=== PATIENT | female | born 1945 | race Caucasian/White ===

== ENCOUNTER 2017-12-25 18:30 | Emergency (ER) | payer MEDICARE, BC ==
--- NOTE | 2017-12-25 19:34 | EDM.PDOC ---
ED HPI GENERAL MEDICAL PROBLEM - General Chief Complaint: Neuro Symptoms/Deficits Stated Complaint: MEMORY DIFFUCLTY, NUMBNESS IN HAND Time Seen by Provider: 12/25/17 19:15 Source of Information: Reports: Patient, Family History Limitations: Reports: No Limitations - History of Present Illness INITIAL COMMENTS - FREE TEXT/NARRATIVE: 72-year-old female was at home to a half hours ago when she developed expressive aphasia and right hand numbness for around 40-45 minutes. This followed some visual changes, photophobia and scotoma like vision while she was on her way home from work. The symptoms resolved prior to getting to the hospital and that she now feels back to baseline. There is a family history of migraine but no personal history, she did not have a headache. She was seen by her primary provider within the last 2 months for some hand tremors but her workup was negative and she was started on a beta stephanie. No recent illness, no nausea or vomiting, and no other extremity symptoms. Onset: Sudden Duration: Hour(s): (Over the course of the last 2 hours) Severity: Moderate Associated Symptoms: Reports: Other (She's been more fatigued over the past 6-8 weeks possibly due to the medication for tremor). Denies: Malaise, Weakness - Related Data Allergies Allergy/AdvReac Type Severity Reaction Status Date / Time No Known Allergies Allergy Verified 12/19/13 11:11 Home Meds: Home Meds Aspirin [Adult Low Dose Aspirin EC] 81 mg PO DAILY 12/25/17 [History] Propranolol HCl 40 mg PO BID 12/25/17 [History] atorvaSTATin [Lipitor] 20 mg PO BEDTIME 12/25/17 [History] Past Medical History Cardiovascular History: Reports: High Cholesterol - Infectious Disease History Infectious Disease History: Reports: Chicken Pox, Measles, Mumps - Past Surgical History GI Surgical History: Reports: Other (See Below) Other GI Surgeries/Procedures: illiostomy 1991 Social & Family History - Family History Family Medical History: Noncontributory - Tobacco Use Smoking Status *Q: Never Smoker - Caffeine Use Caffeine Use: Reports: Coffee - Recreational Drug Use Recreational Drug Use: No ED ROS GENERAL - Review of Systems Review Of Systems: See Below Constitutional: Reports: Other (Fatigue). Denies: Fever, Chills, Malaise, Weakness Respiratory: Denies: Shortness of Breath Cardiovascular: Denies: Chest Pain, Palpitations GI/Abdominal: Reports: Other (Has an ileostomy, history of Crohn's disease and a total colectomy). Denies: Abdominal Pain, Nausea, Vomiting : Reports: No Symptoms Musculoskeletal: Reports: No Symptoms Skin: Reports: No Symptoms Neurological: Reports: Other (See history of present illness) Psychiatric: Reports: No Symptoms ED EXAM, NEURO - Physical Exam Exam: See Below Exam Limited By: No Limitations General Appearance: Alert, No Apparent Distress Eye Exam: Bilateral Eye: Normal Inspection Head Exam: Atraumatic Neck: No: Carotid Bruit Respiratory/Chest: No Respiratory Distress, Lungs Clear Cardiovascular: Regular Rate, Rhythm. No: Extra Beats Neurological: Alert, Normal Mood/Affect, No Motor/Sensory Deficits, Oriented x 3 Extremities: Normal Inspection. No: Pedal Edema Psychiatric: Normal Affect, Normal Mood Skin Exam: Warm, Dry Course - Vital Signs Last Recorded V/S: Last Vital Signs Temp 97.6 F 12/25/17 19:10 Pulse 63 12/25/17 21:44 Resp 18 12/25/17 21:44 BP 126/73 12/25/17 21:44 Pulse Ox 98 12/25/17 21:44 - Orders/Labs/Meds Orders: Active Orders 24 hr Category Date Time Status Head wo Cont [CT] Stat Exams 12/25/17 19:30 Taken - Re-Assessments/Exams Free Text/Narrative Re-Assessment/Exam: 12/25/17 19:[address] of the head without contrast will be obtained. 12/26/17 00:31 After a long discussion with neurology after her head CT returned normal, he was recommended she increase her aspirin to a full dose daily and recheck early next week with her primary provider and arrange a CT angiogram or MR angiogram of the head. She will return to the emergency room if her symptoms recur. Departure - Departure Time of Disposition: 22:12 Disposition: Home, Self-Care 01 Condition: Good Clinical Impression: TIA (transient ischemic attack) Qualifiers: Transient cerebral ischemia type: unspecified Qualified Code(s): G45.9 - Transient cerebral ischemic attack, unspecified - Discharge Information Instructions: Transient Ischemic Attack, [id number] Referrals: Sasha Dove MD [Primary Care Provider] - Forms: ED Department Discharge Care Plan Goals: Take a full dose aspirin daily, return if symptoms recur otherwise recheck with Dr. Odonnell next week for further evaluation. Neurology recommended a CT or MRI angiogram next week. - My Orders Last 24 Hours: My Active Orders 12/25/17 19:30 Head wo Cont [CT] Stat - Assessment/Plan Last 24 Hours: My Active Orders 12/25/17 19:30 Head wo Cont [CT] Stat
== END 2017-12-25 22:13 | disposition home or self-care (01) ==
LOC: JP.ED 18:30
DX: G45.9 Transient cerebral ischemic attack, unspecified (principal); E78.00 Pure hypercholesterolemia, unspecified; Z79.82 Long term (current) use of aspirin; Z79.899 Other long term (current) drug therapy
CPT/HCPCS: 70450; 99284-25

== ENCOUNTER 2020-11-02 11:08 | Inpatient (IN) | payer MEDICARE, BC ==
[2020-11-02] MEDS ORDERED: Sodium Chloride 0.9% 1,000 ML IV STA (11:53)
[2020-11-02] MEDS ORDERED: Sodium Chloride 0.9% 10 ML Syringe FLUSH PRN ×2 (11:53→15:32)
[2020-11-02] MEDS ORDERED: Ondansetron 4 MG/2 ML SDV IVPUSH ONE (11:54)
--- NOTE | 2020-11-02 11:57 | EDM.PDOC ---
ED HPI GENERAL MEDICAL PROBLEM - General Chief Complaint: Gastrointestinal Problem Stated Complaint: BLOCKED ILEOSTAMY Time Seen by Provider: 11/02/20 11:47 Source of Information: Reports: Patient, Family, RN Notes Reviewed History Limitations: Reports: No Limitations - History of Present Illness INITIAL COMMENTS - FREE TEXT/NARRATIVE: 75-year-old female presents emergency department a complaint of abdominal pain and concern for blocked ostomy bag, she has a history of ulcerative colitis status post resection has had ostomy bag for several years however the output over the last 24 hours has been minimal. She has noticed significant abdominal distention and increased abdominal pain she is nauseated well no vomiting - Related Data Allergies Allergy/AdvReac Type Severity Reaction Status Date / Time No Known Allergies Allergy Verified 11/02/20 11:27 Home Meds: Home Meds atorvaSTATin [Lipitor] 20 mg PO BEDTIME 12/25/17 [History] Alendronate Sodium [Fosamax] 1 tab PO WEEKLY 11/02/20 [History] Aspirin 1 tab PO DAILY 11/02/20 [History] Carbidopa/Levodopa [Carbidopa-Levo ER 25-100] 2 tab PO TID 11/02/20 [History] Propranolol [Inderal LA] 1 tab PO DAILY 11/02/20 [History] Past Medical History Cardiovascular History: Reports: High Cholesterol Gastrointestinal History: Reports: Inflammatory Bowel Disease (Ulcerative colitis) - Infectious Disease History Infectious Disease History: Reports: Chicken Pox, Measles, Mumps - Past Surgical History GI Surgical History: Reports: Other (See Below) Other GI Surgeries/Procedures: illiostomy 1991 Social & Family History - Family History Family Medical History: No Pertinent Family History - Tobacco Use Tobacco Use Status *Q: Never Tobacco User - Caffeine Use Caffeine Use: Reports: Coffee ED ROS GENERAL - Review of Systems Review Of Systems: See Below Constitutional: Reports: No Symptoms HEENT: Reports: No Symptoms Respiratory: Reports: No Symptoms Cardiovascular: Reports: No Symptoms GI/Abdominal: Reports: Abdominal Pain, Distension, Nausea. Denies: Vomiting : Reports: No Symptoms ED EXAM, GI/ABD - Physical Exam Exam: See Below Exam Limited By: No Limitations General Appearance: Alert, WD/WN, No Apparent Distress Respiratory/Chest: No Respiratory Distress, Lungs Clear, Normal Breath Sounds, No Accessory Muscle Use, Chest Non-Tender Cardiovascular: Regular Rate, Rhythm, No Murmur GI/Abdominal Exam: Soft, Distended, Tender, Abnormal Bowel Sounds Course - Vital Signs Last Recorded V/S: Last Vital Signs Temp 97.9 F 11/02/20 11:37 Pulse 66 11/02/20 11:37 Resp 14 11/02/20 11:37 BP 106/61 11/02/20 11:37 Pulse Ox 97 11/02/20 11:37 - Orders/Labs/Meds Orders: Active Orders 24 hr Category Date Time Status Enema [RC] ASDIRECTED Care 11/02/20 14:03 Ordered Peripheral IV Care [RC] . DIRECTED Care 11/02/20 11:54 Active Abdomen 1V Upright [CR] Stat Exams 11/02/20 14:04 Ordered Chest 1V Frontal [CR] Stat Exams 11/02/20 14:04 Ordered UA W/MICROSCOPIC [URIN] Urgent Lab 11/02/20 11:53 Ordered Sodium Chloride 0.9% [Saline Flush] Med 11/02/20 11:53 Active 10 ml FLUSH ASDIRECTED PRN Nasogastric Orogastric Tube Insertion [OM.PC] Routine Oth 11/02/20 14:03 Ordered Peripheral IV Insertion Adult [OM.PC] Urgent Oth 11/02/20 11:53 Ordered Medication Orders Sodium Chloride (Sodium Chloride 0.9% 10 Ml Syringe) 10 ml FLUSH ASDIRECTED PRN PRN Reason: Keep Vein Open Labs: Laboratory Tests 11/02/20 11/02/20 11/02/20 Range/Units 12:02 12:02 12:02 WBC 9.0 (4.5-11.0) K/uL RBC 4.43 (3.30-5.50) M/uL Hgb 13.9 (12.0-15.0) g/dL Hct 42.0 (36.0-48.0) % MCV 95 (80-98) fL MCH 31 (27-31) pg MCHC 33 (32-36) % Plt Count 172 (150-400) K/uL Neut % (Auto) 83 H (36-66) % Lymph % (Auto) 8 L (24-44) % [place] % (Auto) 8 H (2-6) % Eos % (Auto) 0 L (2-4) % Baso % (Auto) 0 (0-1) % Sodium 142 (140-148) mmol/L Potassium 4.5 (3.6-5.2) mmol/L Chloride 103 (100-108) mmol/L Carbon Dioxide 28 (21-32) mmol/L Anion Gap 11.2 (5.0-14.0) mmol/L BUN 18 (7-18) mg/dL Creatinine 1.0 (0.6-1.0) mg/dL Est Cr Clr Drug Dosing 44.80 mL/min Estimated GFR (MDRD) 54 L (>60) Glucose 124 H (74-106) mg/dL Lactic Acid 1.5 (0.4-2.0) mmol/L Calcium 9.2 (8.5-10.1) mg/dL Total Bilirubin 1.0 (0.2-1.0) mg/dL AST 13 L (15-37) U/L ALT 14 (12-78) U/L Alkaline Phosphatase 83 (46-116) U/L Total Protein 7.2 (6.4-8.2) g/dL Albumin 4.1 (3.4-5.0) g/dL Globulin 3.1 (2.3-3.5) g/dL Albumin/Globulin Ratio 1.3 (1.2-2.2) Lipase 91 (73-393) U/L Meds: Medications Generic Name Dose Route Start Last Admin Trade Name Freq PRN Reason Stop Dose Admin Sodium Chloride 10 ml 11/02/20 11:53 Sodium Chloride 0.9% 10 Ml Syringe FLUSH ASDIRECTED PRN Keep Vein Open Discontinued Medications Generic Name Dose Route Start Last Admin Trade Name Freq PRN Reason Stop Dose Admin Sodium Chloride 1,000 mls @ 500 mls/hr 11/02/20 11:53 11/02/20 13:37 Normal Saline IV 11/02/20 13:52 500 mls/hr .BOLUS STA Administration Sodium Chloride 70 mls @ 3 mls/sec 11/02/20 12:00 11/02/20 13:13 Normal Saline IV 11/02/20 13:00 3 mls/sec ASDIRECTED KYLAH Administration Iopamidol 93 ml 11/02/20 12:00 11/02/20 13:15 Iopamidol 612 Mg/Ml 100 Ml Bottle IV 11/02/20 13:00 93 ml . DIRECTED KYLAH Administration Ondansetron HCl 4 mg 11/02/20 11:54 11/02/20 13:06 Ondansetron 4 Mg/2 Ml Sdv IVPUSH 11/02/20 11:55 4 mg ONETIME ONE Administration Sodium Chloride 10 ml 11/02/20 11:58 11/02/20 13:15 Sodium Chloride 0.9% 10 Ml Syringe FLUSH 11/02/20 11:59 10 ml ONETIME ONE Administration Departure - Departure Time of Disposition: 14:09 Disposition: Admitted As Inpatient 65 Condition: Fair Clinical Impression: Abdominal distention - Discharge Information Referrals: Mallory Richardson MD [Primary Care Provider] - Forms: ED Department Discharge Sepsis Event Note (ED) - Evaluation Sepsis Screening Result: No Definite Risk - Focused Exam Vital Signs: Vital Signs Temp Pulse Resp BP Pulse Ox 11/02/20 11:37 97.9 F 66 14 106/61 97 11/02/20 11:22 97.9 F 66 17 106/61 97 - My Orders Last 24 Hours: My Active Orders 11/02/20 11:53 UA W/MICROSCOPIC [URIN] Urgent Sodium Chloride 0.9% [Saline Flush] 10 ml FLUSH ASDIRECTED PRN Peripheral IV Insertion Adult [OM.PC] Urgent 11/02/20 11:54 Peripheral IV Care [RC] . DIRECTED 11/02/20 14:03 Enema [RC] ASDIRECTED Nasogastric Orogastric Tube Insertion [OM.PC] Routine 11/02/20 14:04 Abdomen 1V Upright [CR] Stat Chest 1V Frontal [CR] Stat - Assessment/Plan Last 24 Hours: My Active Orders 11/02/20 11:53 UA W/MICROSCOPIC [URIN] Urgent Sodium Chloride 0.9% [Saline Flush] 10 ml FLUSH ASDIRECTED PRN Peripheral IV Insertion Adult [OM.PC] Urgent 11/02/20 11:54 Peripheral IV Care [RC] . DIRECTED 11/02/20 14:03 Enema [RC] ASDIRECTED Nasogastric Orogastric Tube Insertion [OM.PC] Routine 11/02/20 14:04 Abdomen 1V Upright [CR] Stat Chest 1V Frontal [CR] Stat Plan: Assessment Acuity = acute Site and laterality = abdominal distention complicating the patient with known history of ileostomy status post colectomy due to ulcerative colitis now with decreased ostomy output Etiology = unknown Manifestations = abdominal distention Location of injury = Home Lab values = CBC CMP lactic acid lipase are within normal limits CT scan describes dilated loops of small bowel without any mechanical transition point consistent with small bowel obstruction however there is abdominal distention and there is increased fecal matter just proximal to the ostomy site Plan Problem discussed case with hospitalist on-call at [phone] agreed to come and evaluate patient in the emergency department for admission. Called and discussed case with Dr. Andrews general surgeon on-call [phone] recommended NG tube enema through the ostomy site admission reevaluate in the morning This note was dictated using [employer] voice recognition software please call with any questions on syntax or grammar.
[2020-11-02] MEDS ORDERED: Sodium Chloride 0.9% 10 ML Syringe FLUSH ONE (11:58)
[2020-11-02] MEDS ORDERED: Iopamidol 612 MG/ML 100 ML Bottle IV SCH (12:00)
--- NOTE | 2020-11-02 13:51 | CRLCT ---
INDICATION: ABD DISTENTION, SBO?93 ISOVUE 300 GIVEN 341 IMAGES TAKEN HISTORY: Abdominal distention. Small bowel obstruction. COMPARISON: None. TECHNIQUE: CT of the abdomen and pelvis. 93 cc of Isovue-300 IV. Coronal/sagittal reconstruction images. FINDINGS: Lung bases: There is a small pericardial effusion. There is no pleural effusion. There is no acute airspace disease. There is atelectasis at the left lung base. There is no basilar pneumothorax. Abdomen/pelvis: Low-dense liver lesions are consistent with benign cysts. There is a small amount of perihepatic fluid. The spleen size is normal. There is no adrenal mass. There is no pancreatic mass or pancreatic duct dilation. No glandular atrophy. Symmetric nephrograms. No solid renal mass or perinephric fluid collection. The colon appears surgically absent. There is no adnexal mass. There is a right lower quadrant ileostomy. The small bowel is dilated, but there is no specific transition point to indicate a mechanical obstruction. No pneumatosis or portal venous gas. The portal vein, splenic vein, and SMV are patent. The visceral artery branches are patent. There is no abdominal aortic aneurysm. No pelvic sidewall lymphadenopathy. Retroperitoneum and gastrohepatic ligament are normal. Bone windows demonstrate no suspicious bone lesions. Degenerative disc disease. On sagittal reconstruction images, the vertebral body heights are maintained. Impression: 1. Postoperative changes of a proctocolectomy, which by report, was performed for ulcerative colitis. 2. Right lower quadrant ileostomy. 3. The small bowel appears dilated, measuring up to 3 centimeters in luminal dimension. This is likely related to prior proctocolectomy. There is no specific transition point. A mechanical small-bowel obstruction is less likely. 4. There is a small amount of perihepatic ascites. No drainable fluid collection or pneumoperitoneum. 5. Case reviewed with Officer, Emergency Department, 11/02/20, 1348 hours. Dictated by Yosvany Boateng MD @ 11/02/2020 1:50:07 PM Please note that all CT scans at this facility use dose modulation, iterative reconstruction, and/or weight-based dosing when appropriate to reduce radiation dose to as low as reasonably achievable. Dictated by: Yosvany Boateng MD @ 11/02/2020 13:50:13 (Electronically Signed)
--- NOTE | 2020-11-02 14:15 | PCM.HP.2 ---
H&P History of Present Illness - General Date of Service: 11/02/20 Admit Problem/Dx: Admission Diagnosis/Problem Admission Diagnosis/Problem Abdominal pain Source of Information: Patient, Provider, RN Notes Reviewed History Limitations: Reports: No Limitations - History of Present Illness Initial Comments - Free Text/Narative: Ms. Finnegan is a 75-year-old woman who was admitted through the emergency department with nausea, vomiting, abdominal pain, secondary to a small bowel obstruction. She has a prior history of ulcerative colitis and is status post total colectomy with creation of an ileostomy, done 23 years ago. She had been feeling well until yesterday evening when she noted onset of some cramping abdominal pain associated with decreased output out of her ostomy. She was up much of the night because of symptoms and presented to the emergency department today for further evaluation. Laboratory tests were essentially unremarkable, CT scan of the abdomen shows dilated small bowel and evidence of stool in the distal small bowel. NG tube has been placed and she has noted good relief of her nausea as well as abdominal discomfort. No obvious transition point was identified on CT scan. - Related Data Allergies/Adverse Reactions: Allergies Allergy/AdvReac Type Severity Reaction Status Date / Time No Known Allergies Allergy Verified 11/02/20 11:27 Home Medications: Home Meds atorvaSTATin [Lipitor] 20 mg PO BEDTIME 12/25/17 [History] Alendronate Sodium [Fosamax] 70 mg PO WEEKLY 11/02/20 [History] Aspirin 325 mg PO DAILY 11/02/20 [History] Carbidopa/Levodopa [Carbidopa-Levodopa 25-100] 2 tab PO TID 11/02/20 [History] Propranolol [Inderal LA] 80 mg PO DAILY 11/02/20 [History] Past Medical History Cardiovascular History: Reports: High Cholesterol Gastrointestinal History: Reports: Inflammatory Bowel Disease (Ulcerative colitis) - Infectious Disease History Infectious Disease History: Reports: Chicken Pox, Measles, Mumps - Past Surgical History GI Surgical History: Reports: Other (See Below) Other GI Surgeries/Procedures: illiostomy 1991 Social & Family History - Family History Family Medical History: No Pertinent Family History - Tobacco Use Tobacco Use Status *Q: Never Tobacco User - Caffeine Use Caffeine Use: Reports: Coffee H&P Review of Systems - Review of Systems: Review Of Systems: See Below General: Reports: No Symptoms HEENT: Reports: No Symptoms Pulmonary: Reports: No Symptoms Cardiovascular: Reports: No Symptoms Gastrointestinal: Reports: Abdominal Pain, Decreased Appetite, Distension, Nausea, Vomiting. Denies: Difficulty Swallowing, Hematemesis, Hematochezia, Melena Genitourinary: Reports: No Symptoms Musculoskeletal: Reports: No Symptoms Skin: Reports: No Symptoms Psychiatric: Reports: No Symptoms Neurological: Reports: No Symptoms Hematologic/Lymphatic: Reports: No Symptoms Immunologic: Reports: No Symptoms Exam - Exam Exam: See Below - Vital Signs Vital Signs: Last Vital Signs Temp 97.9 F 11/02/20 11:37 Pulse 66 11/02/20 11:37 Resp 14 11/02/20 11:37 BP 106/61 11/02/20 11:37 Pulse Ox 97 11/02/20 11:37 Weight: 137 lb 2.04 oz - Exam Quality Assessment: DVT Prophylaxis General: Alert, Oriented, Cooperative, Moderate Distress HEENT: Conjunctiva Clear, Hearing Intact, Normal Nasal Septum, Posterior Pharynx Clear, Pupils Equal. No: Mucosa Moist & [place] Neck: Supple, Trachea Midline, +2 Carotid Pulse wo Bruit Lungs: Clear to Auscultation, Normal Respiratory Effort Cardiovascular: Regular Rate, Regular Rhythm, Normal S1, Normal S2. No: Systolic Murmur, Diastolic Murmur GI/Abdominal Exam: Soft, No Organomegaly, Distended, Tender. No: Guarding, Rigid, Rebound Extremities: Non-Tender, No Pedal Edema Skin: Warm, Dry, Intact Neurological: Cranial Nerves Intact, Strength Equal Bilateral, Normal Speech, Normal Tone, Sensation Intact, Other (Resting tremor, upper extremities, consistent with Parkinson's). No: Focal Deficit Neuro Extensive - Mental Status: Alert, Oriented x3, Normal Mood/Affect, Normal Cognition, Memory Intact - Patient Data Lab Results Last 24 hrs: Laboratory Results - last 24 hr 11/02/20 11/02/20 11/02/20 Range/Units 12:02 12:02 12:02 WBC 9.0 (4.5-11.0) K/uL RBC 4.43 (3.30-5.50) M/uL Hgb 13.9 (12.0-15.0) g/dL Hct 42.0 (36.0-48.0) % MCV 95 (80-98) fL MCH 31 (27-31) pg MCHC 33 (32-36) % Plt Count 172 (150-400) K/uL Neut % (Auto) 83 H (36-66) % Lymph % (Auto) 8 L (24-44) % [place] % (Auto) 8 H (2-6) % Eos % (Auto) 0 L (2-4) % Baso % (Auto) 0 (0-1) % Sodium 142 (140-148) mmol/L Potassium 4.5 (3.6-5.2) mmol/L Chloride 103 (100-108) mmol/L Carbon Dioxide 28 (21-32) mmol/L Anion Gap 11.2 (5.0-14.0) mmol/L BUN 18 (7-18) mg/dL Creatinine 1.0 (0.6-1.0) mg/dL Est Cr Clr Drug Dosing 44.80 mL/min Estimated GFR (MDRD) 54 L (>60) Glucose 124 H (74-106) mg/dL Lactic Acid 1.5 (0.4-2.0) mmol/L Calcium 9.2 (8.5-10.1) mg/dL Total Bilirubin 1.0 (0.2-1.0) mg/dL AST 13 L (15-37) U/L ALT 14 (12-78) U/L Alkaline Phosphatase 83 (46-116) U/L Total Protein 7.2 (6.4-8.2) g/dL Albumin 4.1 (3.4-5.0) g/dL Globulin 3.1 (2.3-3.5) g/dL Albumin/Globulin Ratio 1.3 (1.2-2.2) Lipase 91 (73-393) U/L Result Diagrams: 11/02/20 12:02 11/02/20 12:02 Sepsis Event Note - Evaluation Sepsis Screening Result: No Definite Risk - Focused Exam Vital Signs: Vital Signs Temp Pulse Resp BP Pulse Ox 11/02/20 11:37 97.9 F 66 14 106/61 97 11/02/20 11:22 97.9 F 66 17 106/61 97 *Q Meaningful Use (ADM) - VTE *Q VTE Pharmacological Contraindications *Q: Patient Scheduled Surgery - VTE Risk Assess *Q Each Risk Factor Represents 1 Point: None Total Score 1 Point Risk Factors: 0 Each Risk Factor Represents 2 Points: None Total Score 2 Point Risk Factors: 0 Each Risk Factor Represents 3 Points: Age 75 Years or Greater Total Score 3 Point Risk Factors: 3 Each Risk Factor Represents 5 Points: None Total Score 5 Point Risk Factors: 0 Venous Thromboembolism Risk Factor Score *Q: 3 Problem List Initiated/Reviewed/Updated: Yes Orders Last 24hrs: Active Orders 24 hr Category Date Time Status Patient Status Manage Transfer [TRANSFER] Routine ADT 11/02/20 14:08 Ordered Enema [RC] ASDIRECTED Care 11/02/20 14:03 Active Peripheral IV Care [RC] . DIRECTED Care 11/02/20 11:54 Active Abdomen 1V Upright [CR] Stat Exams 11/02/20 14:04 Ordered Chest 1V Frontal [CR] Stat Exams 11/02/20 14:04 Ordered UA W/MICROSCOPIC [URIN] Urgent Lab 11/02/20 11:53 Ordered Sodium Chloride 0.9% [Saline Flush] Med 11/02/20 11:53 Active 10 ml FLUSH ASDIRECTED PRN Nasogastric Orogastric Tube Insertion [OM.PC] Routine Oth 11/02/20 14:03 Ordered Peripheral IV Insertion Adult [OM.PC] Urgent Oth 11/02/20 11:53 Ordered Resuscitation Status Routine Resus Stat 11/02/20 14:10 Ordered Medication Orders Sodium Chloride (Sodium Chloride 0.9% 10 Ml Syringe) 10 ml FLUSH ASDIRECTED PRN PRN Reason: Keep Vein Open Assessment/Plan Comment:: ASSESSMENT AND PLAN SMALL BOWEL OBSTRUCTION-diffuse small bowel enlargement noted on CT scan with no obvious transition point. Mechanical obstruction versus obstruction secondary to stool. -Enema via ostomy given in the emergency department -NG tube to low intermittent suction -N.p.o. -IV fluids for hydration -Medication for pain and nausea as needed -Follow-up abdominal x-ray in a.m. -Consult Dr. Andrews for surgical opinion PARKINSON'S DISEASE -Continue outpatient medical therapy MAINTENANCE ISSUES -DVT prophylaxis; SCUDs, hold on anticoagulation because of possible need for surgery -GI prophylaxis; not indicated -Ricci catheter; not indicated -Nutrition; n.p.o. -Nicotine dependence; not required CODE STATUS-FULL CODE ADMISSION STATUS-patient will be admitted to inpatient status, expect at least a 2 night hospital stay for evaluation and management of problems as outlined above. At the time of this admission I do not reasonably expected evaluation and management of this problem will require more than a 96 hour hospital stay. DISPOSITION-anticipate discharge to home after the hospital stay. PRIMARY CARE PROVIDER-Dr. Richardson - Mortality Measure Prognosis:: Good
[2020-11-02] MEDS ORDERED: Prochlorperazine 10 MG/2 ML SDV IVPUSH ONE (14:53)
[2020-11-02] MEDS ORDERED: Albuterol 0.083% 2.5 MG/3 ML Neb Soln NEB PRN (15:32)
[2020-11-02] MEDS ORDERED: HYDROmorphone 0.5 MG/0.5 ML Syringe IVPUSH PRN (15:32)
[2020-11-02] MEDS: Ondansetron 4 MG/2 ML SDV IV PRN ×2 (17:28→21:28)
[2020-11-02] MEDS: atorvaSTATin 20 MG Tab PO SCH (21:04)
[2020-11-02] MEDS: Carbidopa/Levodopa 25-100 MG Tab PO SCH (21:04)
[2020-11-02] MEDS ORDERED: LORazepam 2 MG/ML SDV IVPUSH PRN (21:08)
[2020-11-02] MEDS: Lactated Ringers 1,000 ML IV SCH (21:35)
[2020-11-03] MEDS: Lactated Ringers 1,000 ML IV SCH ×2 (05:19→13:58)
[2020-11-03] MEDS ORDERED: Propranolol 80 MG Cap.ER PO SCH (09:00)
[2020-11-03] MEDS ORDERED: Aspirin 325 MG Tab.EC PO SCH (09:00)
[2020-11-03] MEDS: Carbidopa/Levodopa 25-100 MG Tab PO SCH ×3 (09:43→20:09)
[2020-11-03] MEDS: Pantoprazole 40 MG Vial IV SCH (09:57)
--- NOTE | 2020-11-03 11:21 | PCM.PN ---
- General Info Date of Service: 11/03/20 Subjective Update: Ms. Finnegan has been stable since admission yesterday. Output through her ostomy has increased and output from the NG tube appears to be slowly decreasing. Symptoms have improved including abdominal pain and nausea. She has been seen and evaluated this morning by Dr. Andrews, plan is to continue with conservative management and reassess in a.m. Functional Status: Reports: Ambulating, Urinating. Denies: Tolerating Diet - Review of Systems General: Reports: No Symptoms Pulmonary: Reports: No Symptoms Cardiovascular: Reports: No Symptoms Gastrointestinal: Reports: Abdominal Pain. Denies: Difficulty Swallowing, Hem atochezia, Melena, Nausea, Vomiting - Patient Data Vitals - Most Recent: Last Vital Signs Temp 97 F 11/03/20 10:54 Pulse 73 11/03/20 10:54 Resp 17 11/03/20 10:54 BP 121/69 11/03/20 10:54 Pulse Ox 98 11/03/20 10:54 Weight - Most Recent: 138 lb 6.4 oz I&O - Last 24 Hours: Intake & Output 11/02/20 11/03/20 11/03/20 22:59 06:59 14:59 Intake Total 348 1342 Output Total 750 950 60 Balance -402 392 -60 Lab Results Last 24 Hours: Laboratory Results - last 24 hr 11/02/20 11/02/20 11/02/20 Range/Units 12:02 12:02 12:02 WBC 9.0 (4.5-11.0) K/uL RBC 4.43 (3.30-5.50) M/uL Hgb 13.9 (12.0-15.0) g/dL Hct 42.0 (36.0-48.0) % MCV 95 (80-98) fL MCH 31 (27-31) pg MCHC 33 (32-36) % Plt Count 172 (150-400) K/uL Neut % (Auto) 83 H (36-66) % Lymph % (Auto) 8 L (24-44) % [place] % (Auto) 8 H (2-6) % Eos % (Auto) 0 L (2-4) % Baso % (Auto) 0 (0-1) % Sodium 142 (140-148) mmol/L Potassium 4.5 (3.6-5.2) mmol/L Chloride 103 (100-108) mmol/L Carbon Dioxide 28 (21-32) mmol/L Anion Gap 11.2 (5.0-14.0) mmol/L BUN 18 (7-18) mg/dL Creatinine 1.0 (0.6-1.0) mg/dL Est Cr Clr Drug Dosing 44.80 mL/min Estimated GFR (MDRD) 54 L (>60) Glucose 124 H (74-106) mg/dL Lactic Acid 1.5 (0.4-2.0) mmol/L Calcium 9.2 (8.5-10.1) mg/dL Magnesium (1.8-2.4) mg/dL Total Bilirubin 1.0 (0.2-1.0) mg/dL AST 13 L (15-37) U/L ALT 14 (12-78) U/L Alkaline Phosphatase 83 (46-116) U/L Total Protein 7.2 (6.4-8.2) g/dL Albumin 4.1 (3.4-5.0) g/dL Globulin 3.1 (2.3-3.5) g/dL Albumin/Globulin Ratio 1.3 (1.2-2.2) Lipase 91 (73-393) U/L 11/03/20 Range/Units 04:15 WBC (4.5-11.0) K/uL RBC (3.30-5.50) M/uL Hgb (12.0-15.0) g/dL Hct (36.0-48.0) % MCV (80-98) fL MCH (27-31) pg MCHC (32-36) % Plt Count (150-400) K/uL Neut % (Auto) (36-66) % Lymph % (Auto) (24-44) % [place] % (Auto) (2-6) % Eos % (Auto) (2-4) % Baso % (Auto) (0-1) % Sodium 144 (140-148) mmol/L Potassium 4.2 (3.6-5.2) mmol/L Chloride 105 (100-108) mmol/L Carbon Dioxide 27 (21-32) mmol/L Anion Gap 11.9 (5.0-14.0) mmol/L BUN 15 (7-18) mg/dL Creatinine 0.9 (0.6-1.0) mg/dL Est Cr Clr Drug Dosing 47.85 mL/min Estimated GFR (MDRD) > 60 (>60) Glucose 102 (74-106) mg/dL Lactic Acid (0.4-2.0) mmol/L Calcium 8.2 L (8.5-10.1) mg/dL Magnesium 1.8 (1.8-2.4) mg/dL Total Bilirubin (0.2-1.0) mg/dL AST (15-37) U/L ALT (12-78) U/L Alkaline Phosphatase (46-116) U/L Total Protein (6.4-8.2) g/dL Albumin (3.4-5.0) g/dL Globulin (2.3-3.5) g/dL Albumin/Globulin Ratio (1.2-2.2) Lipase (73-393) U/L Med Orders - Current: Current Medications Albuterol (Albuterol 0.083% 2.5 Mg/3 Ml Neb Soln) 2.5 mg NEB Q4H PRN PRN Reason: Shortness Of Breath/wheezing Aspirin (Aspirin 325 Mg Tab.Ec) 325 mg PO DAILY [facility] [place] Atorvastatin Calcium (Atorvastatin 20 Mg Tab) 20 mg PO BEDTIME [facility] [place] Last Admin: 11/02/20 21:04 Dose: Not Given Documented by: Carbidopa/Levodopa (Carbidopa/Levodopa 25-100 Mg Tab) 2 tab PO TID [facility] [place] Last Admin: 11/03/20 09:43 Dose: 2 tab Documented by: Hydromorphone HCl (Hydromorphone 0.5 Mg/0.5 Ml Syringe) 0.5 mg IVPUSH Q2H PRN PRN Reason: Pain Lactated Ringer's (Ringers, Lactated) 1,000 mls @ 75 mls/hr IV ASDIRECTED [facility] [place] Lorazepam (Lorazepam 2 Mg/Ml Sdv) 0.5 mg IVPUSH Q6H PRN PRN Reason: Nausea Last Admin: 11/02/20 21:28 Dose: 0.5 mg Documented by: Ondansetron HCl (Ondansetron 4 Mg/2 Ml Sdv) 4 mg IV Q4H PRN PRN Reason: Nausea/Vomiting Last Admin: 11/02/20 21:28 Dose: 4 mg Documented by: Pantoprazole Sodium (Pantoprazole 40 Mg Vial) 40 mg IV Q24H [facility] [place] Last Admin: 11/03/20 09:57 Dose: 40 mg Documented by: Sodium Chloride (Sodium Chloride 0.9% 10 Ml Syringe) 10 ml FLUSH ASDIRECTED PRN PRN Reason: Keep Vein Open Discontinued Medications Sodium Chloride (Normal Saline) 1,000 mls @ 500 mls/hr IV .BOLUS STA Stop: 11/02/20 13:52 Last Admin: 11/02/20 13:37 Dose: 500 mls/hr Documented by: Sodium Chloride (Normal Saline) 70 mls @ 3 mls/sec IV ASDIRECTED [facility] Stop: 11/02/20 13:00 Last Admin: 11/02/20 13:13 Dose: 3 mls/sec Documented by: Lactated Ringer's (Ringers, Lactated) 1,000 mls @ 125 mls/hr IV ASDIRECTED [facility] [place] Last Admin: 11/03/20 05:19 Dose: 125 mls/hr Documented by: Iopamidol (Iopamidol 612 Mg/Ml 100 Ml Bottle) 93 ml IV . DIRECTED [facility] [place] Stop: 11/02/20 13:00 Last Admin: 11/02/20 13:15 Dose: 93 ml Documented by: Ondansetron HCl (Ondansetron 4 Mg/2 Ml Sdv) 4 mg IVPUSH ONETIME ONE Stop: 11/02/20 11:55 Last Admin: 11/02/20 13:06 Dose: 4 mg Documented by: Prochlorperazine Edisylate (Prochlorperazine 10 Mg/2 Ml Sdv) 5 mg IVPUSH ONETIME ONE Stop: 11/02/20 14:54 Last Admin: 11/02/20 15:01 Dose: 5 mg Documented by: Propranolol HCl (Propranolol 80 Mg Cap.Er) 80 mg PO DAILY [facility] [place] Last Admin: 11/03/20 10:19 Dose: Not Given Documented by: Sodium Chloride (Sodium Chloride 0.9% 10 Ml Syringe) 10 ml FLUSH ASDIRECTED PRN PRN Reason: Keep Vein Open Sodium Chloride (Sodium Chloride 0.9% 10 Ml Syringe) 10 ml FLUSH ONETIME ONE Stop: 11/02/20 11:59 Last Admin: 11/02/20 13:15 Dose: 10 ml Documented by: - Exam Quality Assessment: DVT Prophylaxis General: Alert, Oriented, Cooperative, Mild Distress Lungs: Clear to Auscultation, Normal Respiratory Effort Cardiovascular: Regular Rate, Regular Rhythm, No Murmurs GI/Abdominal Exam: Soft, No Organomegaly, Tender. No: Distended, Guarding, Rigid, Rebound Extremities: Non-Tender, No Pedal Edema - Patient Data Lab Results Last 24 hrs: Laboratory Results - last 24 hr 11/02/20 11/02/20 11/02/20 Range/Units 12:02 12:02 12:02 WBC 9.0 (4.5-11.0) K/uL RBC 4.43 (3.30-5.50) M/uL Hgb 13.9 (12.0-15.0) g/dL Hct 42.0 (36.0-48.0) % MCV 95 (80-98) fL MCH 31 (27-31) pg MCHC 33 (32-36) % Plt Count 172 (150-400) K/uL Neut % (Auto) 83 H (36-66) % Lymph % (Auto) 8 L (24-44) % [place] % (Auto) 8 H (2-6) % Eos % (Auto) 0 L (2-4) % Baso % (Auto) 0 (0-1) % Sodium 142 (140-148) mmol/L Potassium 4.5 (3.6-5.2) mmol/L Chloride 103 (100-108) mmol/L Carbon Dioxide 28 (21-32) mmol/L Anion Gap 11.2 (5.0-14.0) mmol/L BUN 18 (7-18) mg/dL Creatinine 1.0 (0.6-1.0) mg/dL Est Cr Clr Drug Dosing 44.80 mL/min Estimated GFR (MDRD) 54 L (>60) Glucose 124 H (74-106) mg/dL Lactic Acid 1.5 (0.4-2.0) mmol/L Calcium 9.2 (8.5-10.1) mg/dL Magnesium (1.8-2.4) mg/dL Total Bilirubin 1.0 (0.2-1.0) mg/dL AST 13 L (15-37) U/L ALT 14 (12-78) U/L Alkaline Phosphatase 83 (46-116) U/L Total Protein 7.2 (6.4-8.2) g/dL Albumin 4.1 (3.4-5.0) g/dL Globulin 3.1 (2.3-3.5) g/dL Albumin/Globulin Ratio 1.3 (1.2-2.2) Lipase 91 (73-393) U/L 11/03/20 Range/Units 04:15 WBC (4.5-11.0) K/uL RBC (3.30-5.50) M/uL Hgb (12.0-15.0) g/dL Hct (36.0-48.0) % MCV (80-98) fL MCH (27-31) pg MCHC (32-36) % Plt Count (150-400) K/uL Neut % (Auto) (36-66) % Lymph % (Auto) (24-44) % [place] % (Auto) (2-6) % Eos % (Auto) (2-4) % Baso % (Auto) (0-1) % Sodium 144 (140-148) mmol/L Potassium 4.2 (3.6-5.2) mmol/L Chloride 105 (100-108) mmol/L Carbon Dioxide 27 (21-32) mmol/L Anion Gap 11.9 (5.0-14.0) mmol/L BUN 15 (7-18) mg/dL Creatinine 0.9 (0.6-1.0) mg/dL Est Cr Clr Drug Dosing 47.85 mL/min Estimated GFR (MDRD) > 60 (>60) Glucose 102 (74-106) mg/dL Lactic Acid (0.4-2.0) mmol/L Calcium 8.2 L (8.5-10.1) mg/dL Magnesium 1.8 (1.8-2.4) mg/dL Total Bilirubin (0.2-1.0) mg/dL AST (15-37) U/L ALT (12-78) U/L Alkaline Phosphatase (46-116) U/L Total Protein (6.4-8.2) g/dL Albumin (3.4-5.0) g/dL Globulin (2.3-3.5) g/dL Albumin/Globulin Ratio (1.2-2.2) Lipase (73-393) U/L Result Diagrams: 11/02/20 12:02 11/03/20 04:15 Sepsis Event Note - Evaluation Sepsis Screening Result: No Definite Risk - Focused Exam Vital Signs: Vital Signs Temp Pulse Resp BP BP Pulse Ox 11/03/20 10:54 97 F 73 17 121/69 98 11/03/20 07:35 98.1 F 77 15 131/66 93 L 11/03/20 03:30 99.1 F 73 16 92/45 L 94 L 11/02/20 23:30 98.8 F 71 18 95/46 L 96 - Problem List Review Problem List Initiated/Reviewed/Updated: Yes - My Orders Last 24 Hours: My Active Orders 11/02/20 Lunch Nothing per Oral Now Diet [DIET] 11/02/20 14:10 Resuscitation Status Routine 11/02/20 15:32 Albuterol [Proventil Neb Soln] 2.5 mg NEB Q4H PRN HYDROmorphone [Dilaudid] 0.5 mg IVPUSH Q2H PRN Ondansetron [Zofran] 4 mg IV Q4H PRN Sodium Chloride 0.9% [Saline Flush] 10 ml FLUSH ASDIRECTED PRN 11/02/20 15:32 Patient Status [ADT] Routine Ambulate [RC] QID Gastrointestinal Tube Mgmt [RC] ASDIRECTED Height and Weight [RC] DAILY Intake and Output [RC] QSHIFT Notify Provider Consults [RC] ASDIRECTED Notify Provider Vital Signs [RC] ASDIRECTED Oxygen Therapy [RC] PRN Peripheral IV Care [RC] . DIRECTED RT Aerosol Therapy [RC] ASDIRECTED Up With Assistance [RC] ASDIRECTED Up to Chair [RC] QID VTE/DVT Education [RC] Per Unit Routine Vital Signs [RC] Q4H Consult to Physician [CONS] Routine Peripheral IV Insertion Adult [OM.PC] Routine Sequential Compression Device [OM.PC] Per Unit Routine VTE Pharmacological Contraindications [AST] Per Unit Routine 11/02/20 21:00 Carbidopa/Levodopa [Sinemet 25-100 mg] 2 tab PO TID atorvaSTATin [Lipitor] 20 mg PO BEDTIME 11/03/20 05:00 Abdomen 2V AP Upright Decub [CR] Timed 11/03/20 09:00 Aspirin [Ecotrin] 325 mg PO DAILY 11/03/20 10:45 Lactated Ringers [Ringers, Lactated] 1,000 ml IV ASDIRECTED - Plan Plan:: ASSESSMENT AND PLAN SMALL BOWEL OBSTRUCTION-modest improvement since admission, NG output decreased, ostomy output increasing -NG tube to low intermittent suction -N.p.o. -IV fluids for hydration -Medication for pain and nausea as needed -Follow-up abdominal x-ray in a.m. -Surgical follow-up per Dr. Andrews PARKINSON'S DISEASE -Continue outpatient medical therapy MAINTENANCE ISSUES -DVT prophylaxis; SCUDs, hold on anticoagulation because of possible need for surgery -GI prophylaxis; not indicated -Ricci catheter; not indicated -Nutrition; n.p.o. -Nicotine dependence; not required CODE STATUS-FULL CODE ADMISSION STATUS-patient will be admitted to inpatient status, expect at least a 2 night hospital stay for evaluation and management of problems as outlined above. At the time of this admission I do not reasonably expected evaluation and management of this problem will require more than a 96 hour hospital stay. DISPOSITION-anticipate discharge to home after the hospital stay. PRIMARY CARE PROVIDER-Dr. Richardson
[2020-11-04] MEDS: Lactated Ringers 1,000 ML IV SCH (03:33)
[2020-11-04] MEDS: Carbidopa/Levodopa 25-100 MG Tab PO SCH ×3 (08:45→20:07)
[2020-11-04] MEDS: Pantoprazole 40 MG Vial IV SCH (08:45)
--- NOTE | 2020-11-04 10:56 | PN ---
DATE OF SERVICE: 11/04/2020 SUBJECTIVE: Tish came in with pain and no ileostomy output. She since that time has been having stool and undigested food from her ileostomy. She states she is having pain at around her stoma and she has not had much of an appetite. Vital signs have been stable. Oral intake 540. Ileostomy output 450. Urine output 800. REVIEW OF SYSTEMS: Remainder of review of systems negative for any pertinent positives and negatives. OBJECTIVE: GENERAL: Tish Finnegan is a pleasant 75-year-old female. She is alert and orientated. VITAL SIGNS: TPR is 98.1, 74, 18, blood pressure 118/54. HEENT: Negative. NECK: Supple. HEART: Regular rate and rhythm. LUNGS: Clear. ABDOMEN: Slightly distended. Ileostomy bag in place. EXTREMITIES: Without peripheral edema. ASSESSMENT: 1. Small bowel obstruction, improvement since admission. 2. Parkinson's disease. PLAN: 1. Recheck CBC with diff. Her white count this morning was 1.5 and just recheck for accuracy. 2. Full liquid diet. 3. Check abdominal flat and upright in a.m. 4. We will evaluate p.r.n. or in a.m. Becky Ramos PA-C /[id number]
--- NOTE | 2020-11-04 11:13 | CR ---
Chest 1V Frontal CLINICAL HISTORY: Nasogastric tube FINDINGS: Lungs are clear. Heart size is normal. There is an NG tube in the stomach. Position is similar to prior exam. There is some small bowel distention IMPRESSION: No acute cardio pelvic process NG tube in place
--- NOTE | 2020-11-04 11:14 | CR ---
Abdomen 2V AP Upright Decub CLINICAL HISTORY: Follow-up small bowel obstruction FINDINGS: No free air is seen. There is some small bowel distention with scattered air-fluid levels. NG tube is been removed IMPRESSION: Small bowel distention with air-fluid levels may represent persistent SBO or ileus.
--- NOTE | 2020-11-04 11:19 | CR ---
Abdomen 2V AP Upright Decub CLINICAL HISTORY: Small bowel obstruction FINDINGS: NG tube is in place in the mid stomach. There is diffuse small bowel distention with scattered air-fluid levels. Patient has a right lower quadrant ostomy site. IMPRESSION: Small bowel dilatation with air-fluid levels consistent with SBO NG tube in place
--- NOTE | 2020-11-04 12:06 | PCM.PN ---
- General Info Date of Service: 11/04/20 Subjective Update: No acute events overnight. NG tube was removed yesterday. No nausea since that time. She does still have moderate crampy abdominal pain but this is better galindo n yesterday and much better than admission. Output into her ostomy is better than yesterday but not back to normal. No nausea and no vomiting. No fevers. X-ray this morning shows persistent dilation of the small bowel but improvement. Functional Status: Reports: Pain Controlled, Tolerating Diet - Review of Systems General: Denies: Fever Gastrointestinal: Reports: Abdominal Pain. Denies: Nausea - Patient Data Vitals - Most Recent: Last Vital Signs Temp 36.7 C 11/04/20 10:10 Pulse 73 11/04/20 10:10 Resp 18 11/04/20 10:10 BP 102/60 11/04/20 10:10 Pulse Ox 98 11/04/20 10:10 Weight - Most Recent: 63.594 kg I&O - Last 24 Hours: Intake & Output 11/03/20 11/04/20 11/04/20 22:59 06:59 14:59 Intake Total 480 1424 260 Output Total 700 400 400 Balance -220 1024 -140 Lab Results Last 24 Hours: Laboratory Results - last 24 hr 11/04/20 11/04/20 11/04/20 Range/Units 04:30 04:35 07:24 WBC 1.7 L 1.5 L (4.5-11.0) K/uL RBC 3.85 3.95 (3.30-5.50) M/uL Hgb 12.0 12.4 (12.0-15.0) g/dL Hct 36.8 37.8 (36.0-48.0) % MCV 96 96 (80-98) fL MCH 31 31 (27-31) pg MCHC 33 33 (32-36) % Plt Count 105 L 121 L (150-400) K/uL Neut % (Auto) 48 (36-66) % Lymph % (Auto) 21 L (24-44) % [place] % (Auto) 30 H (2-6) % Eos % (Auto) 1 L (2-4) % Baso % (Auto) 0 (0-1) % Sodium 144 (140-148) mmol/L Potassium 3.7 (3.6-5.2) mmol/L Chloride 104 (100-108) mmol/L Carbon Dioxide 30 (21-32) mmol/L Anion Gap 10.2 (5.0-14.0) mmol/L BUN 13 (7-18) mg/dL Creatinine 0.9 (0.6-1.0) mg/dL Est Cr Clr Drug Dosing 47.85 mL/min Estimated GFR (MDRD) > 60 (>60) Glucose 99 (74-106) mg/dL Calcium 7.9 L (8.5-10.1) mg/dL Phosphorus 2.4 L (2.5-4.9) mg/dL Magnesium 1.8 (1.8-2.4) mg/dL Total Bilirubin 1.4 H (0.2-1.0) mg/dL AST 15 (15-37) U/L ALT 10 L (12-78) U/L Alkaline Phosphatase 51 (46-116) U/L NT-Pro-B Natriuret Pep 392 (5-450) pg/mL Total Protein 5.3 L (6.4-8.2) g/dL Albumin 2.9 L (3.4-5.0) g/dL Globulin 2.4 (2.3-3.5) g/dL Albumin/Globulin Ratio 1.2 (1.2-2.2) Med Orders - Current: Current Medications Albuterol (Albuterol 0.083% 2.5 Mg/3 Ml Neb Soln) 2.5 mg NEB Q4H PRN PRN Reason: Shortness Of Breath/wheezing Aspirin (Aspirin 325 Mg Tab.Ec) 325 mg PO DAILY [facility] Atorvastatin Calcium (Atorvastatin 20 Mg Tab) 20 mg PO BEDTIME [facility] Last Admin: 11/02/20 21:04 Dose: Not Given Documented by: Carbidopa/Levodopa (Carbidopa/Levodopa 25-100 Mg Tab) 2 tab PO TID [facility] Last Admin: 11/04/20 08:45 Dose: 2 tab Documented by: Hydromorphone HCl (Hydromorphone 0.5 Mg/0.5 Ml Syringe) 0.5 mg IVPUSH Q2H PRN PRN Reason: Pain Lorazepam (Lorazepam 2 Mg/Ml Sdv) 0.5 mg IVPUSH Q6H PRN PRN Reason: Nausea Last Admin: 11/02/20 21:28 Dose: 0.5 mg Documented by: Ondansetron HCl (Ondansetron 4 Mg/2 Ml Sdv) 4 mg IV Q4H PRN PRN Reason: Nausea/Vomiting Last Admin: 11/02/20 21:28 Dose: 4 mg Documented by: Pantoprazole Sodium (Pantoprazole 40 Mg Vial) 40 mg IV Q24H [facility] Last Admin: 11/04/20 08:45 Dose: 40 mg Documented by: Sodium Chloride (Sodium Chloride 0.9% 10 Ml Syringe) 10 ml FLUSH ASDIRECTED PRN PRN Reason: Keep Vein Open Discontinued Medications Sodium Chloride (Normal Saline) 1,000 mls @ 500 mls/hr IV .BOLUS STA Stop: 11/02/20 13:52 Last Admin: 11/02/20 13:37 Dose: 500 mls/hr Documented by: Sodium Chloride (Normal Saline) 70 mls @ 3 mls/sec IV ASDIRECTED [facility] Stop: 11/02/20 13:00 Last Admin: 11/02/20 13:13 Dose: 3 mls/sec Documented by: Lactated Ringer's (Ringers, Lactated) 1,000 mls @ 125 mls/hr IV ASDIRECTED [facility] Last Admin: 11/03/20 05:19 Dose: 125 mls/hr Documented by: Lactated Ringer's (Ringers, Lactated) 1,000 mls @ 75 mls/hr IV ASDIRECTED [facility] Last Admin: 11/04/20 03:33 Dose: 75 mls/hr Documented by: Iopamidol (Iopamidol 612 Mg/Ml 100 Ml Bottle) 93 ml IV . DIRECTED [facility] Stop: 11/02/20 13:00 Last Admin: 11/02/20 13:15 Dose: 93 ml Documented by: Ondansetron HCl (Ondansetron 4 Mg/2 Ml Sdv) 4 mg IVPUSH ONETIME ONE Stop: 11/02/20 11:55 Last Admin: 11/02/20 13:06 Dose: 4 mg Documented by: Prochlorperazine Edisylate (Prochlorperazine 10 Mg/2 Ml Sdv) 5 mg IVPUSH ONETIME ONE Stop: 11/02/20 14:54 Last Admin: 11/02/20 15:01 Dose: 5 mg Documented by: Propranolol HCl (Propranolol 80 Mg Cap.Er) 80 mg PO DAILY [facility] Last Admin: 11/03/20 10:19 Dose: Not Given Documented by: Sodium Chloride (Sodium Chloride 0.9% 10 Ml Syringe) 10 ml FLUSH ASDIRECTED PRN PRN Reason: Keep Vein Open Sodium Chloride (Sodium Chloride 0.9% 10 Ml Syringe) 10 ml FLUSH ONETIME ONE Stop: 11/02/20 11:59 Last Admin: 11/02/20 13:15 Dose: 10 ml Documented by: - Exam Quality Assessment: No: Supplemental Oxygen General: Alert, Oriented, Cooperative, No Acute Distress Lungs: Normal Respiratory Effort GI/Abdominal Exam: Normal Bowel Sounds, Soft, Distended, Tender (epigastric ) Extremities: No Pedal Edema Psy/Mental Status: Alert, Normal Affect - Patient Data Lab Results Last 24 hrs: Laboratory Results - last 24 hr 11/04/20 11/04/20 11/04/20 Range/Units 04:30 04:35 07:24 WBC 1.7 L 1.5 L (4.5-11.0) K/uL RBC 3.85 3.95 (3.30-5.50) M/uL Hgb 12.0 12.4 (12.0-15.0) g/dL Hct 36.8 37.8 (36.0-48.0) % MCV 96 96 (80-98) fL MCH 31 31 (27-31) pg MCHC 33 33 (32-36) % Plt Count 105 L 121 L (150-400) K/uL Neut % (Auto) 48 (36-66) % Lymph % (Auto) 21 L (24-44) % [place] % (Auto) 30 H (2-6) % Eos % (Auto) 1 L (2-4) % Baso % (Auto) 0 (0-1) % Sodium 144 (140-148) mmol/L Potassium 3.7 (3.6-5.2) mmol/L Chloride 104 (100-108) mmol/L Carbon Dioxide 30 (21-32) mmol/L Anion Gap 10.2 (5.0-14.0) mmol/L BUN 13 (7-18) mg/dL Creatinine 0.9 (0.6-1.0) mg/dL Est Cr Clr Drug Dosing 47.85 mL/min Estimated GFR (MDRD) > 60 (>60) Glucose 99 (74-106) mg/dL Calcium 7.9 L (8.5-10.1) mg/dL Phosphorus 2.4 L (2.5-4.9) mg/dL Magnesium 1.8 (1.8-2.4) mg/dL Total Bilirubin 1.4 H (0.2-1.0) mg/dL AST 15 (15-37) U/L ALT 10 L (12-78) U/L Alkaline Phosphatase 51 (46-116) U/L NT-Pro-B Natriuret Pep 392 (5-450) pg/mL Total Protein 5.3 L (6.4-8.2) g/dL Albumin 2.9 L (3.4-5.0) g/dL Globulin 2.4 (2.3-3.5) g/dL Albumin/Globulin Ratio 1.2 (1.2-2.2) Result Diagrams: 11/04/20 07:24 11/04/20 04:30 Sepsis Event Note - Evaluation Sepsis Screening Result: No Definite Risk - Focused Exam Vital Signs: Vital Signs Temp Pulse Resp BP Pulse Ox 11/04/20 10:10 36.7 C 73 18 102/60 98 11/04/20 07:00 36.7 C 74 18 118/54 L 95 11/04/20 03:00 37.0 C 72 18 137/94 H 93 L - Problem List Review Problem List Initiated/Reviewed/Updated: Yes - My Orders Last 24 Hours: My Active Orders 11/04/20 12:05 Convert IV to Saline Lock [OM.PC] Routine 11/05/20 05:00 BASIC METABOLIC PANEL,BMP [CHEM] Timed CBC W/O DIFF,HEMOGRAM [HEME] Timed (1) - Plan Plan:: ASSESSMENT AND PLAN SMALL BOWEL OBSTRUCTION-NG removed yesterday. Still some pain but nausea and ostomy output are improving. X-ray this morning did still show some dilation of the small bowel. -Advance diet per surgery recommendations -Saline lock IV -Symptomatic management of pain and nausea as needed -Follow-up abdominal x-ray in a.m. -Surgical follow-up per Dr. Andrews ULCERATIVE COLITIS-history of with colectomy nearly 30 years ago. Has had ostomy since that time but has otherwise been stable. PARKINSON'S DISEASE-stable. -Continue outpatient medical therapy MAINTENANCE ISSUES -DVT prophylaxis; SCUDs, hold on anticoagulation because of possible need for surgery -GI prophylaxis; not indicated -Ricci catheter; not indicated -Nutrition; n.p.o. DISPOSITION-anticipate discharge to home after the hospital stay. Miguel Angel Kaye MD
[2020-11-04] MEDS: Ondansetron 4 MG/2 ML SDV IV PRN ×2 (13:20→17:37)
--- NOTE | 2020-11-04 14:14 | CONS ---
DATE OF SERVICE: 11/03/2020 REFERRING PHYSICIAN: CONSULTING PHYSICIAN: Pete Andrews MD HISTORY OF PRESENT ILLNESS: This is a 75-year-old female, status post total proctocolectomy with end-ileostomy around 23 years ago. So this was the first time she has had problems with the ostomy on Wednesday, 48 hours ago, the patient developed obstipation with the ostomy not putting out much at that point and she will be seen in the emergency room yesterday. CT scan showed dilated small bowel with some stool in the distal small bowel which will be likely just proximal to the point of complete or high-grade partial obstruction. She had been receiving an enema in the emergency room. Overnight, she has had around 700 mL out of her ileostomy and NG tube has had around 200 mL out and has noted, however that her nausea improved at that point. The patient's other past medical history includes hyperlipidemia, hypertension, had a history of TIA. She also has Parkinson's requiring Sinemet, although this was not listed on the current H and P. Otherwise, her medications, her other past surgical history, social and family history and allergies are reportedly attached the H and P and the emergency room notes. PHYSICAL EXAMINATION: On examination, the patient appeared to be fairly comfortable this morning. Abdomen appeared to be mildly distended. 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 LABS: Abdominal x-ray did really show some dilated small-bowel loops, although these appeared to be somewhat improved from admission. IMPRESSION: Small-bowel obstruction with a history of previous total proctocolectomy with end-ileostomy, at this point appeared to be perhaps showing signs of resolving with output overnight around 700 mL, end-ileostomy, this is well above the volume given in the emergency room as an enema. We will continue the nasogastric suction. We will add some Protonix to the regimen to decrease the gastric secretions and recheck some labs and abdominal x-ray in the morning. In this case, we will probably give 48 hours or so to resolve prior to considering exploratory laparotomy unless her condition deteriorates in the interim. Pete Andrews MD /[id number]
[2020-11-04] MEDS ORDERED: Promethazine 6.25 MG in Sodium Chloride 0.9% 50 ML IV PRN (18:32)
--- NOTE | 2020-11-05 08:35 | PN ---
DATE OF SERVICE: 11/05/2020 SUBJECTIVE: Tish reports this morning that she is feeling real good. She has 450 out of her ileostomy of liquid stool. She reports no nausea. She did have a rough day yesterday with quite a bit of nausea and was not hungry. Oral intake was minimal at 520 for liquids, and breakfast 80%, 0 for lunch, and 5% for dinner. REVIEW OF SYSTEMS: Remainder of review of systems negative for any pertinent positives and negatives. OBJECTIVE: GENERAL: Tish Finnegan is a pleasant 75-year-old female. She is alert and oriented. VITAL SIGNS: TPR 99.1, 91, 16, blood pressure 110/66. HEENT: Negative. NECK: Supple. HEART: Regular rate and rhythm. LUNGS: Clear. ABDOMEN: Remains to be slightly distended. Ileostomy intact. EXTREMITIES: Without peripheral edema. ASSESSMENT: 1. Small bowel obstruction, ileostomy blockage. 2. Parkinson disease. 3. Low white count. PLAN: 1. Abdominal flat and upright x-ray series, 0400, 11/06/2020, x5 days. 2. We will discuss low white count with García Kaye MD, hospitalist in regard to if the patient would need surgery. White count is concerning low at 2. 3. We will evaluate p.r.n. or in a.m. Becky Ramos PA-C /[id number]
[2020-11-05] MEDS: Carbidopa/Levodopa 25-100 MG Tab PO SCH ×3 (08:54→20:33)
[2020-11-05] MEDS: Pantoprazole 40 MG Vial IV SCH (08:54)
--- NOTE | 2020-11-05 10:26 | CR ---
Abdomen 2V AP Flat Upright CLINICAL HISTORY: Blocked ileostomy FINDINGS: There is persistent small bowel distention similar to prior study. Patient has a right the abdominal ostomy site. No free air is identified. IMPRESSION: Persistent small bowel distention without significant interval change
--- NOTE | 2020-11-05 12:09 | PCM.PN ---
- General Info Date of Service: 11/05/20 Subjective Update: She did have some increased nausea yesterday evening but this improved after a dose of Phenergan. No significant nausea this morning. Pain has improved but has not quite resolved. She has had moderate output from her ostomy site. She does report that her stoma is more swollen than usual and she thinks it is about twice as wide in diameter as usual. She also reports that it is more red than usual. She has not had any fevers. Abdominal x-ray still shows dilation of the small intestine which is similar to yesterday. White count is slightly higher than yesterday but still low along with her platelets and mild anemia. Functional Status: Reports: Pain Controlled, Tolerating Diet - Review of Systems General: Denies: Fever Gastrointestinal: Reports: Abdominal Pain - Patient Data Vitals - Most Recent: Last Vital Signs Temp 37.2 C 11/05/20 10:18 Pulse 79 11/05/20 10:18 Resp 18 11/05/20 10:18 BP 110/63 11/05/20 10:18 Pulse Ox 94 L 11/05/20 10:18 Weight - Most Recent: 63.594 kg I&O - Last 24 Hours: Intake & Output 11/04/20 11/05/20 11/05/20 22:59 06:59 14:59 Intake Total 70 240 200 Output Total 500 Balance 70 240 -300 Lab Results Last 24 Hours: Laboratory Results - last 24 hr 11/05/20 11/05/20 Range/Units 04:10 04:10 WBC 2.0 L (4.5-11.0) K/uL RBC 3.84 (3.30-5.50) M/uL Hgb 11.7 L (12.0-15.0) g/dL Hct 36.6 (36.0-48.0) % MCV 95 (80-98) fL MCH 31 (27-31) pg MCHC 32 (32-36) % Plt Count 123 L (150-400) K/uL Sodium 141 (140-148) mmol/L Potassium 3.2 L (3.6-5.2) mmol/L Chloride 100 (100-108) mmol/L Carbon Dioxide 30 (21-32) mmol/L Anion Gap 14.2 H (5.0-14.0) mmol/L BUN 10 (7-18) mg/dL Creatinine 0.9 (0.6-1.0) mg/dL Est Cr Clr Drug Dosing 47.85 mL/min Estimated GFR (MDRD) > 60 (>60) Glucose 91 (74-106) mg/dL Calcium 8.4 L (8.5-10.1) mg/dL Med Orders - Current: Current Medications Albuterol (Albuterol 0.083% 2.5 Mg/3 Ml Neb Soln) 2.5 mg NEB Q4H PRN PRN Reason: Shortness Of Breath/wheezing Aspirin (Aspirin 325 Mg Tab.Ec) 325 mg PO DAILY [facility] Atorvastatin Calcium (Atorvastatin 20 Mg Tab) 20 mg PO BEDTIME [facility] Last Admin: 11/02/20 21:04 Dose: Not Given Documented by: Carbidopa/Levodopa (Carbidopa/Levodopa 25-100 Mg Tab) 2 tab PO TID [facility] Last Admin: 11/05/20 08:54 Dose: 2 tab Documented by: Hydromorphone HCl (Hydromorphone 0.5 Mg/0.5 Ml Syringe) 0.5 mg IVPUSH Q2H PRN PRN Reason: Pain Promethazine HCl 6.25 mg/ (Sodium Chloride) 50.25 mls @ 200 mls/hr IV Q6H PRN PRN Reason: Nausea/Vomiting Last Admin: 11/04/20 18:52 Dose: 200 mls/hr Documented by: Lorazepam (Lorazepam 2 Mg/Ml Sdv) 0.5 mg IVPUSH Q6H PRN PRN Reason: Nausea Last Admin: 11/02/20 21:28 Dose: 0.5 mg Documented by: Ondansetron HCl (Ondansetron 4 Mg/2 Ml Sdv) 4 mg IV Q4H PRN PRN Reason: Nausea/Vomiting Last Admin: 11/04/20 17:37 Dose: 4 mg Documented by: Pantoprazole Sodium (Pantoprazole 40 Mg Vial) 40 mg IV Q24H [facility] Last Admin: 11/05/20 08:54 Dose: 40 mg Documented by: Potassium Chloride (Potassium Chloride 20 Meq Tab.Er) 40 meq PO BID [facility] Stop: 11/05/20 21:01 Sodium Chloride (Sodium Chloride 0.9% 10 Ml Syringe) 10 ml FLUSH ASDIRECTED PRN PRN Reason: Keep Vein Open Discontinued Medications Sodium Chloride (Normal Saline) 1,000 mls @ 500 mls/hr IV .BOLUS STA Stop: 11/02/20 13:52 Last Admin: 11/02/20 13:37 Dose: 500 mls/hr Documented by: Sodium Chloride (Normal Saline) 70 mls @ 3 mls/sec IV ASDIRECTED [facility] Stop: 11/02/20 13:00 Last Admin: 11/02/20 13:13 Dose: 3 mls/sec Documented by: Lactated Ringer's (Ringers, Lactated) 1,000 mls @ 125 mls/hr IV ASDIRECTED [facility] Last Admin: 11/03/20 05:19 Dose: 125 mls/hr Documented by: Lactated Ringer's (Ringers, Lactated) 1,000 mls @ 75 mls/hr IV ASDIRECTED [facility] Last Admin: 11/04/20 03:33 Dose: 75 mls/hr Documented by: Iopamidol (Iopamidol 612 Mg/Ml 100 Ml Bottle) 93 ml IV . DIRECTED [facility] Stop: 11/02/20 13:00 Last Admin: 11/02/20 13:15 Dose: 93 ml Documented by: Ondansetron HCl (Ondansetron 4 Mg/2 Ml Sdv) 4 mg IVPUSH ONETIME ONE Stop: 11/02/20 11:55 Last Admin: 11/02/20 13:06 Dose: 4 mg Documented by: Prochlorperazine Edisylate (Prochlorperazine 10 Mg/2 Ml Sdv) 5 mg IVPUSH ONETIME ONE Stop: 11/02/20 14:54 Last Admin: 11/02/20 15:01 Dose: 5 mg Documented by: Propranolol HCl (Propranolol 80 Mg Cap.Er) 80 mg PO DAILY [facility] Last Admin: 11/03/20 10:19 Dose: Not Given Documented by: Sodium Chloride (Sodium Chloride 0.9% 10 Ml Syringe) 10 ml FLUSH ASDIRECTED PRN PRN Reason: Keep Vein Open Sodium Chloride (Sodium Chloride 0.9% 10 Ml Syringe) 10 ml FLUSH ONETIME ONE Stop: 11/02/20 11:59 Last Admin: 11/02/20 13:15 Dose: 10 ml Documented by: - Exam Quality Assessment: No: Supplemental Oxygen General: Alert, Oriented, Cooperative, No Acute Distress Lungs: Normal Respiratory Effort GI/Abdominal Exam: Soft, Distended. No: Abnormal Bowel Sounds (hypoactive) Extremities: No Pedal Edema Psy/Mental Status: Alert, Normal Affect - Patient Data Lab Results Last 24 hrs: Laboratory Results - last 24 hr 11/05/20 11/05/20 Range/Units 04:10 04:10 WBC 2.0 L (4.5-11.0) K/uL RBC 3.84 (3.30-5.50) M/uL Hgb 11.7 L (12.0-15.0) g/dL Hct 36.6 (36.0-48.0) % MCV 95 (80-98) fL MCH 31 (27-31) pg MCHC 32 (32-36) % Plt Count 123 L (150-400) K/uL Sodium 141 (140-148) mmol/L Potassium 3.2 L (3.6-5.2) mmol/L Chloride 100 (100-108) mmol/L Carbon Dioxide 30 (21-32) mmol/L Anion Gap 14.2 H (5.0-14.0) mmol/L BUN 10 (7-18) mg/dL Creatinine 0.9 (0.6-1.0) mg/dL Est Cr Clr Drug Dosing 47.85 mL/min Estimated GFR (MDRD) > 60 (>60) Glucose 91 (74-106) mg/dL Calcium 8.4 L (8.5-10.1) mg/dL Result Diagrams: 11/05/20 04:10 11/05/20 04:10 Sepsis Event Note - Evaluation Sepsis Screening Result: Sepsis Risk - Focused Exam Vital Signs: Vital Signs Temp Pulse Resp BP BP Pulse Ox 11/05/20 10:18 37.2 C 79 18 110/63 94 L 11/05/20 07:21 37.3 C 91 16 110/66 94 L 11/05/20 02:40 37.7 C 69 16 110/59 L 95 - Problem List Review Problem List Initiated/Reviewed/Updated: Yes - My Orders Last 24 Hours: My Active Orders 11/04/20 12:05 Convert IV to Saline Lock [OM.PC] Routine 11/04/20 18:32 Promethazine [Phenergan] 6.25 mg Sodium Chloride 0.9% [Normal Saline] 50 ml IV Q6H 11/05/20 12:02 COVID-19/FLU A+B/RSV [[facility]] Routine 11/05/20 12:05 HEMATOPATH CONSULTATION, SMEAR Routine 11/05/20 12:15 Potassium Chloride [Klor-Con M20] 40 meq PO BID 11/06/20 05:00 DEANDRA W/REFLEX Routine BASIC METABOLIC PANEL,BMP [CHEM] Timed C-REACTIVE PROTEIN [CHEM] Timed CBC WITH AUTO DIFF [HEME] Timed ESR [SEDIMENTATION RATE MANUAL] [HEME] Timed - Plan Plan:: ASSESSMENT AND PLAN SMALL BOWEL OBSTRUCTION-NG removed and both pain and nausea seem to be improving but unfortunately her x-ray is not much better. Stoma appears erythematous and swollen. -Advance diet per surgery recommendations -Saline lock IV -Symptomatic management of pain and nausea as needed -Follow-up abdominal x-ray in a.m. -Surgical follow-up per Dr. Andrews Pancytopenia-she has a mild decrease in all 3 cell lines which was not present on admission. Most likely this is related to dilution from IV fluids. Patient does not have any B symptoms to raise concern for malignancy. No history of concerning medication use that I can find. No symptoms to suggest Covid but this will be ruled out. I would anticipate that this will rebound with time. -COVID-19 testing -Peripheral smear -Sed rate, CRP and DEANDRA -I would recommend a recheck after hospital discharge and if it persists she may need more invasive work-up such as a bone marrow biopsy ULCERATIVE COLITIS-history of with colectomy nearly 30 years ago. Has had ostomy since that time but has otherwise been stable. -Routine stoma care PARKINSON'S DISEASE-stable. -Continue outpatient medical therapy MAINTENANCE ISSUES -DVT prophylaxis; SCUDs, hold on anticoagulation because of possible need for surgery -GI prophylaxis; not indicated -Ricci catheter; not indicated -Nutrition; n.p.o. DISPOSITION-anticipate discharge to home after the hospital stay. Miguel Angel Kaye MD
[2020-11-05] MEDS: Potassium Chloride 20 MEQ Tab.ER PO SCH ×2 (13:01→20:33)
[2020-11-05 13:12] LABS: CORONAVIRUS COVID-19 NAA NEGATIVE (NEGATIVE)
[2020-11-06] MEDS: Pantoprazole 40 MG Vial IV SCH (08:35)
[2020-11-06] MEDS: Carbidopa/Levodopa 25-100 MG Tab PO SCH ×3 (08:35→21:43)
[2020-11-06] MEDS ORDERED: Potassium Phosphates 45 MMOLE in Sodium Chloride 0.9% 250 ML IV SCH (09:00)
--- NOTE | 2020-11-06 09:08 | CR ---
Abdomen 2V AP Flat Upright CLINICAL HISTORY: Partial small bowel obstruction FINDINGS: There is persistent small bowel distention with scattered air-fluid levels. This appears to have decreased slightly since prior study. Patient has a right lower quadrant ostomy site. IMPRESSION: Persistent small bowel distention with scattered air-fluid levels. There may be slight improvement since prior study
[2020-11-06] MEDS: Potassium Phos in 0.9 % NaCl 15 MMOL in Premix Bag 1 BAG IV SCH ×6 (10:07→16:38)
--- NOTE | 2020-11-06 10:55 | PN ---
DATE OF SERVICE: 11/05/2020 SUBJECTIVE: Tish's abdominal x-ray looked better today. She does report that the stoma is quite swollen and painful, which is different for her. She did have a temp max of 100.3. This morning, it is 97.7. Oral intake 1780. Urine output 1200. Ostomy output was 500. REVIEW OF SYSTEMS: Remainder of review of systems negative for any pertinent positives and negatives. OBJECTIVE: GENERAL: Tish is a pleasant 75-year-old female. VITAL SIGNS: TPR is 97.7, 86, 14, blood pressure 117/74. HEENT: Negative. NECK: Supple. HEART: Regular rate and rhythm. LUNGS: Clear. ABDOMEN: Remains distended. EXTREMITIES: Without peripheral edema. ASSESSMENT: 1. Small bowel obstruction, ileostomy blockage slowly resolving. 2. Parkinson's disease. 3. Low white count. Slightly increasing. Today, it was 2.3. PLAN: 1. Continue daily abdominal flat and upright x-rays. Add phosphate to today's labs and check CBC, CMP, mag, and phos in a.m. 2. We will evaluate p.r.n. or in a.m. Becky Ramos PA-C /[id number]
--- NOTE | 2020-11-06 13:24 | PCM.PN ---
- General Info Date of Service: 11/06/20 Subjective Update: No acute events overnight. No significant pain or nausea. Output from her ostomy is steadily improving. Functional Status: Reports: Pain Controlled, Tolerating Diet - Review of Systems General: Denies: Fever Gastrointestinal: Denies: Abdominal Pain, Nausea - Patient Data Vitals - Most Recent: Last Vital Signs Temp 36.3 C 11/06/20 11:17 Pulse 74 11/06/20 11:17 Resp 16 11/06/20 11:17 BP 117/67 11/06/20 11:17 Pulse Ox 96 11/06/20 11:17 Weight - Most Recent: 62.324 kg I&O - Last 24 Hours: Intake & Output 11/05/20 11/06/20 11/06/20 22:59 06:59 14:59 Intake Total 720 1160 Output Total 232 843 5543 Balance 620 -400 -340 Lab Results Last 24 Hours: Laboratory Results - last 24 hr 11/06/20 11/06/20 11/06/20 Range/Units 05:00 05:00 07:42 WBC 2.3 L (4.5-11.0) K/uL RBC 3.77 (3.30-5.50) M/uL Hgb 11.8 L (12.0-15.0) g/dL Hct 35.8 L (36.0-48.0) % MCV 95 (80-98) fL MCH 31 (27-31) pg MCHC 33 (32-36) % Plt Count 125 L (150-400) K/uL Neut % (Auto) Steel Detailer Lymph % (Auto) Steel Detailer Atlantic % (Auto) Steel Detailer Eos % (Auto) Steel Detailer Baso % (Auto) Steel Detailer Add Manual Diff Yes Neutrophils % (Manual) 28 L (36-66) % Band Neutrophils % 32 H (5-11) % Lymphocytes % (Manual) 26 (24-44) % Monocytes % (Manual) 14 H (2-6) % Atypical Lymphocytes Few Hypochromasia Occasional ESR 37 H (0-25) mm/hr Sodium 136 L (140-148) mmol/L Potassium 4.2 (3.6-5.2) mmol/L Chloride 99 L (100-108) mmol/L Carbon Dioxide 30 (21-32) mmol/L Anion Gap 11.2 (5.0-14.0) mmol/L BUN 9 (7-18) mg/dL Creatinine 0.8 (0.6-1.0) mg/dL Est Cr Clr Drug Dosing 53.83 mL/min Estimated GFR (MDRD) > 60 (>60) Glucose 90 (74-106) mg/dL Calcium 8.8 (8.5-10.1) mg/dL Phosphorus 2.4 L (2.5-4.9) mg/dL C-Reactive Protein 3.45 H (0.0-0.3) mg/dL Med Orders - Current: Current Medications Albuterol (Albuterol 0.083% 2.5 Mg/3 Ml Neb Soln) 2.5 mg NEB Q4H PRN PRN Reason: Shortness Of Breath/wheezing Aspirin (Aspirin 325 Mg Tab.Ec) 325 mg PO DAILY [facility] Atorvastatin Calcium (Atorvastatin 20 Mg Tab) 20 mg PO BEDTIME [facility] Last Admin: 11/02/20 21:04 Dose: Not Given Documented by: Carbidopa/Levodopa (Carbidopa/Levodopa 25-100 Mg Tab) 2 tab PO TID [facility] Last Admin: 11/06/20 13:05 Dose: 2 tab Documented by: Hydromorphone HCl (Hydromorphone 0.5 Mg/0.5 Ml Syringe) 0.5 mg IVPUSH Q2H PRN PRN Reason: Pain Promethazine HCl 6.25 mg/ (Sodium Chloride) 50.25 mls @ 200 mls/hr IV Q6H PRN PRN Reason: Nausea/Vomiting Last Admin: 11/04/20 18:52 Dose: 200 mls/hr Documented by: Potassium Phosphate 15 mmol/ (Premix) 250 mls @ 85 mls/hr IV Q3H [facility] Stop: 11/06/20 18:27 Last Admin: 11/06/20 13:05 Dose: 85 mls/hr Documented by: Lorazepam (Lorazepam 2 Mg/Ml Sdv) 0.5 mg IVPUSH Q6H PRN PRN Reason: Nausea Last Admin: 11/02/20 21:28 Dose: 0.5 mg Documented by: Ondansetron HCl (Ondansetron 4 Mg/2 Ml Sdv) 4 mg IV Q4H PRN PRN Reason: Nausea/Vomiting Last Admin: 11/04/20 17:37 Dose: 4 mg Documented by: Pantoprazole Sodium (Pantoprazole 40 Mg Tab.Cr) 40 mg PO [facility]AK[facility]ST [facility] Propranolol HCl (Propranolol 80 Mg Cap.Er) 80 mg PO DAILY [facility] Sodium Chloride (Sodium Chloride 0.9% 10 Ml Syringe) 10 ml FLUSH ASDIRECTED PRN PRN Reason: Keep Vein Open Discontinued Medications Sodium Chloride (Normal Saline) 1,000 mls @ 500 mls/hr IV .BOLUS STA Stop: 11/02/20 13:52 Last Admin: 11/02/20 13:37 Dose: 500 mls/hr Documented by: Sodium Chloride (Normal Saline) 70 mls @ 3 mls/sec IV ASDIRECTED [facility] Stop: 11/02/20 13:00 Last Admin: 11/02/20 13:13 Dose: 3 mls/sec Documented by: Lactated Ringer's (Ringers, Lactated) 1,000 mls @ 125 mls/hr IV ASDIRECTED [facility] Last Admin: 11/03/20 05:19 Dose: 125 mls/hr Documented by: Lactated Ringer's (Ringers, Lactated) 1,000 mls @ 75 mls/hr IV ASDIRECTED [facility] Last Admin: 11/04/20 03:33 Dose: 75 mls/hr Documented by: Iopamidol (Iopamidol 612 Mg/Ml 100 Ml Bottle) 93 ml IV . DIRECTED [facility] Stop: 11/02/20 13:00 Last Admin: 11/02/20 13:15 Dose: 93 ml Documented by: Ondansetron HCl (Ondansetron 4 Mg/2 Ml Sdv) 4 mg IVPUSH ONETIME ONE Stop: 11/02/20 11:55 Last Admin: 11/02/20 13:06 Dose: 4 mg Documented by: Pantoprazole Sodium (Pantoprazole 40 Mg Vial) 40 mg IV Q24H [facility] Last Admin: 11/06/20 08:35 Dose: 40 mg Documented by: Potassium Chloride (Potassium Chloride 20 Meq Tab.Er) 40 meq PO BID [facility] Stop: 11/05/20 21:01 Last Admin: 11/05/20 20:33 Dose: 40 meq Documented by: Prochlorperazine Edisylate (Prochlorperazine 10 Mg/2 Ml Sdv) 5 mg IVPUSH ONETIME ONE Stop: 11/02/20 14:54 Last Admin: 11/02/20 15:01 Dose: 5 mg Documented by: Propranolol HCl (Propranolol 80 Mg Cap.Er) 80 mg PO DAILY [facility] Last Admin: 11/03/20 10:19 Dose: Not Given Documented by: Sodium Chloride (Sodium Chloride 0.9% 10 Ml Syringe) 10 ml FLUSH ASDIRECTED PRN PRN Reason: Keep Vein Open Sodium Chloride (Sodium Chloride 0.9% 10 Ml Syringe) 10 ml FLUSH ONETIME ONE Stop: 11/02/20 11:59 Last Admin: 11/02/20 13:15 Dose: 10 ml Documented by: - Exam Quality Assessment: No: Supplemental Oxygen General: Alert, Oriented, Cooperative, No Acute Distress Lungs: Normal Respiratory Effort GI/Abdominal Exam: Soft, No Distention Extremities: No Pedal Edema Psy/Mental Status: Alert, Normal Affect - Patient Data Lab Results Last 24 hrs: Laboratory Results - last 24 hr 11/06/20 11/06/20 11/06/20 Range/Units 05:00 05:00 07:42 WBC 2.3 L (4.5-11.0) K/uL RBC 3.77 (3.30-5.50) M/uL Hgb 11.8 L (12.0-15.0) g/dL Hct 35.8 L (36.0-48.0) % MCV 95 (80-98) fL MCH 31 (27-31) pg MCHC 33 (32-36) % Plt Count 125 L (150-400) K/uL Neut % (Auto) Steel Detailer Lymph % (Auto) Steel Detailer Atlantic % (Auto) Steel Detailer Eos % (Auto) Steel Detailer Baso % (Auto) Steel Detailer Add Manual Diff Yes Neutrophils % (Manual) 28 L (36-66) % Band Neutrophils % 32 H (5-11) % Lymphocytes % (Manual) 26 (24-44) % Monocytes % (Manual) 14 H (2-6) % Atypical Lymphocytes Few Hypochromasia Occasional ESR 37 H (0-25) mm/hr Sodium 136 L (140-148) mmol/L Potassium 4.2 (3.6-5.2) mmol/L Chloride 99 L (100-108) mmol/L Carbon Dioxide 30 (21-32) mmol/L Anion Gap 11.2 (5.0-14.0) mmol/L BUN 9 (7-18) mg/dL Creatinine 0.8 (0.6-1.0) mg/dL Est Cr Clr Drug Dosing 53.83 mL/min Estimated GFR (MDRD) > 60 (>60) Glucose 90 (74-106) mg/dL Calcium 8.8 (8.5-10.1) mg/dL Phosphorus 2.4 L (2.5-4.9) mg/dL C-Reactive Protein 3.45 H (0.0-0.3) mg/dL Result Diagrams: 11/06/20 05:00 11/06/20 05:00 Sepsis Event Note - Evaluation Sepsis Screening Result: No Definite Risk - Focused Exam Vital Signs: Vital Signs Temp Pulse Resp BP Pulse Ox 11/06/20 11:17 36.3 C 74 16 117/67 96 11/06/20 07:13 36.5 C 86 14 117/74 96 11/06/20 03:00 36.8 C 16 94 L - Problem List Review Problem List Initiated/Reviewed/Updated: Yes - My Orders Last 24 Hours: My Active Orders 11/05/20 12:30 HEMATOPATH CONSULTATION, SMEAR Routine 11/06/20 05:00 DEANDRA W/REFLEX Routine 11/06/20 13:02 Consult to Dietary [Consult to Casing Grader] [CONS] Routine 11/07/20 09:00 Propranolol [Inderal LA] 80 mg PO DAILY - Plan Plan:: ASSESSMENT AND PLAN SMALL BOWEL OBSTRUCTION-pain and nausea have resolved. Output from the ostomy is improving. X-ray looks a little better today. -Advance diet per surgery recommendations -Saline lock IV -Symptomatic management of pain and nausea as needed -Follow-up abdominal x-ray in a.m. -Surgical follow-up per Dr. Andrews Pancytopenia-she has a mild decrease in all 3 cell lines which was not present on admission. Most likely this is related to dilution from IV fluids. Levels are slowly improving. CRP and sedimentation rate only mildly elevated. -Peripheral smear pending -DEANDRA pending -I would recommend a recheck after hospital discharge and if it persists she may need more invasive work-up such as a bone marrow biopsy ULCERATIVE COLITIS-history of with colectomy nearly 30 years ago. Has had ostomy since that time but has otherwise been stable. -Routine stoma care PARKINSON'S DISEASE-stable. -Continue outpatient medical therapy MAINTENANCE ISSUES -DVT prophylaxis; SCUDs, hold on anticoagulation because of possible need for surgery -GI prophylaxis; not indicated -Ricci catheter; not indicated -Nutrition; n.p.o. DISPOSITION-anticipate discharge to home after the hospital stay, possibly tomorrow if stable overnight Miguel Angel Kaye MD
[2020-11-06] MEDS ORDERED: Ondansetron 4 MG Tab.DIS PO PRN (17:05)
[2020-11-06 17:12] LABS: BANDS 10 % (Not Estab.); BASOS 1 % (Not Estab.); EOS 1 % (Not Estab.); HEMATOCRIT 36.6 % (34.0-46.6); HEMATOLOGY COMMENTS: Note: (.); HEMOGLOBIN 12.4 g/dL (11.1-15.9); IMMATURE CELLS Note (.); LYMPHS 24 % (Not Estab.); LYMPHS (ABSOLUTE) 0.5 x10E3/uL (0.7-3.1); MCH 31.2 pg (26.6-33.0); MCHC 33.9 g/dL (31.5-35.7); MCV 92 fL (79-97); MONOCYTES 23 % (Not Estab.); MONOCYTES(ABSOLUTE) 0.5 x10E3/uL (0.1-0.9); NEUTROPHILS 41 % (Not Estab.); NEUTROPHILS (ABSOLUTE) 1.1 x10E3/uL (1.4-7.0); PLATELETS 138 x10E3/uL (150-450); RBC 3.97 x10E6/uL (3.77-5.28); RBC Appear normal. (.); WBC 2.1 x10E3/uL (3.4-10.8)
[2020-11-06] MEDS: atorvaSTATin 20 MG Tab PO SCH (21:43)
[2020-11-07] MEDS ORDERED: Pantoprazole 40 MG Tab.CR PO SCH (07:30)
--- NOTE | 2020-11-07 08:51 | CR ---
Abdomen 2V AP Flat Upright CLINICAL HISTORY: Partial small bowel obstruction FINDINGS: There is persistent small bowel distention with scattered air-fluid levels. There may be slight improvement since prior study. No free air is seen. IMPRESSION: Persistent small bowel distention. There may be some minimal improvement
[2020-11-07] MEDS: Carbidopa/Levodopa 25-100 MG Tab PO SCH (08:54)
[2020-11-07] MEDS ORDERED: Propranolol 80 MG Cap.ER PO SCH (09:00)
--- NOTE | 2020-11-07 12:49 | DISCH ---
ADMISSION DIAGNOSES: 1. Small bowel obstruction. 2. Ulcerative colitis. 3. 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 4. Hypercholesterolemia. 5. Parkinson's. 6. History of transient ischemic attack. DISCHARGE DIAGNOSIS: Resolution of small bowel obstruction. HISTORY: Tish Finnegan is a pleasant 75-year-old female who was admitted through the emergency room on 11/02/2020. She had nausea, vomiting, abdominal pain, and was diagnosed with a partial small bowel obstruction in the emergency room. She has had history of ulcerative colitis and is status post total colectomy with creation of an ileostomy 23 years ago. She states this is the first time she has had any problems with her ileostomy. A CT scan did show dilated small bowel and evidence of stool in the distal small bowel. She had an NG placed and it did help with her nausea and vomiting. She was admitted and treated with besides the NG, IV fluids and a consult to Surgery was done. She continued daily with abdominal ultrasounds, and after the nausea improved, the NG was removed. She was started on a full liquid diet. White count was very low throughout her hospitalization. On admission, her white count was 9; on 11/04, it was 1.5; 11/05, it was 2; and day of discharge, her white count was 3. Pain gradually subsided. She had an increase in ileostomy output. The nausea got better. On day of discharge, she was having no pain. Abdominal x-ray showed improvement. Oral intake was 1190. Ostomy output was 1900. REVIEW OF SYSTEMS: CONSTITUTIONAL: Denies any fever, chills, or night sweats. HEENT: Negative for headache, dizziness, loss of coordination. NECK: Negative. CHEST: No chest pain, shortness of breath, fast irregular heart beat. LUNGS: No cough. ABDOMEN: Reports transient nausea, feeling like she is not hungry. No abdominal pain. States she feels a little distended. Ostomy output has been good. GENITOURINARY: Negative for urinary tract infection signs and symptoms. EXTREMITIES: Negative for any joint pain or swelling. NEUROLOGIC: As above, no headache, dizziness, loss of coordination. No numbness or weakness in extremities. PSYCHIATRIC: No depression, anxiety, or insomnia. SKIN: Negative for rash. OBJECTIVE: GENERAL: Tish Finnegan is a pleasant 75-year-old female. VITAL SIGNS: Height is 5 feet 5 inches, weight is 137 pounds, BMI is 22. TPR 96.4, 84, 16, blood pressure 97/62. HEENT: Negative. NECK: Supple. HEART: Regular rate and rhythm. LUNGS: Clear. ABDOMEN: Ileostomy in place. There is liquid stool. She is slightly distended but soft and nontender. EXTREMITIES: Without peripheral edema. NEUROLOGIC: Cranial nerves II through XII intact. Ambulation is good. PSYCHIATRIC: Mood and affect appropriate. DISPOSITION: Discharged to home. CONDITION: Stable and improving. FOLLOWUP APPOINTMENT: With Becky Ramos PA-C, on 03/15 at 8:30 a.m. She is to have a CBC with diff right before that appointment. HOME MEDICATIONS: 1. Zofran 4 mg q.4 hours p.r.n. nausea, #30. 2. She is to resume her home medication of: a. Propranolol 80 mg p.o. daily. b. Carbidopa-levodopa 25-100 2 tablets p.o. t.i.d. c. Aspirin 325 mg p.o. daily. d. Fosamax 70 mg p.o. weekly. e. Lipitor 20 mg p.o. at bedtime. DIET: Full liquid diet for 10 days, then GI low residue, low-fiber diet forever. ACTIVITY: As tolerated. Drive: May drive today. Shower/bathing: May shower. DISCHARGE INSTRUCTIONS: Notify provider if any fever, increased pain, nausea, or vomiting. /[id number]
== END 2020-11-07 11:03 | disposition home or self-care (01) | DRG 394 ==
LOC: JP.ED 11:08 → JP.MS 14:08
PROVIDERS: ADMIT Hospitalist; ATTEND Surgery
DX: R14.0 Abdominal distension (gaseous) (principal); K58.9 Irritable bowel syndrome, unspecified; Z93.2 Ileostomy status; K94.13 Enterostomy malfunction; R10.9 Unspecified abdominal pain; D61.818 Other pancytopenia; E78.00 Pure hypercholesterolemia, unspecified; G20 Parkinson's disease; I10 Essential (primary) hypertension; E78.5 Hyperlipidemia, unspecified; Z79.899 Other long term (current) drug therapy; Z86.73 Personal history of transient ischemic attack (TIA), and cerebral infarction without residual deficits; Z79.82 Long term (current) use of aspirin; Z20.822 Contact with and (suspected) exposure to COVID-19; Z87.19 Personal history of other diseases of the digestive system; Z90.49 Acquired absence of other specified parts of digestive tract
CPT/HCPCS: 0241U; 36415; 71045; 74019; 74021; 74177; 80048; 80053; 83605; 83690; 83735; 83880; 84100; 85025; 85027; 85060; 85651; 86038; 86140; 96374; 99284; 99285; A9270-GY; C9113; J0780; J2060; J2405; J2550; J7030; J7120; Q9967

== ENCOUNTER 2020-11-11 14:07 | Emergency (ER) | payer MEDICARE, BC ==
[2020-11-11] MEDS ORDERED: Sodium Chloride 0.9% 10 ML Syringe FLUSH PRN (15:41)
[2020-11-11] MEDS ORDERED: Lactated Ringers 1,000 ML IV ONE ×2 (15:41→17:35)
[2020-11-11] MEDS ORDERED: Scopolamine 1.5 MG Transdermal Patch TRDERM STA (15:42)
[2020-11-11] MEDS ORDERED: Prochlorperazine 10 MG/2 ML SDV IVPUSH ONE (15:42)
--- NOTE | 2020-11-11 15:44 | EDM.PDOC ---
ED HPI GENERAL MEDICAL PROBLEM - General Chief Complaint: Gastrointestinal Problem Stated Complaint: CANT EAT/SLEEP, DEHYDRATED Time Seen by Provider: 11/11/20 15:36 Source of Information: Reports: Patient, Family, Old Records, RN Notes Reviewed History Limitations: Reports: No Limitations - History of Present Illness INITIAL COMMENTS - FREE TEXT/NARRATIVE: 75-year-old female presents emergency department day complaint of nausea and dry heaves, she was recently discharged from the hospital 5 days prior admission for small bowel obstruction. She does have a known ileostomy which had decreased functioning she states that seems to be returning back to normal her biggest problem is she has not been able to eat or drink much without retching and she feels very dehydrated and weak - Related Data Allergies Allergy/AdvReac Type Severity Reaction Status Date / Time No Known Allergies Allergy Verified 11/11/20 15:24 Home Meds: Home Meds atorvaSTATin [Lipitor] 20 mg PO BEDTIME 12/25/17 [History] Alendronate Sodium [Fosamax] 70 mg PO WEEKLY 11/02/20 [History] Aspirin 325 mg PO DAILY 11/02/20 [History] Carbidopa/Levodopa [Carbidopa-Levodopa 25-100] 2 tab PO TID 11/02/20 [History] Propranolol [Inderal LA] 80 mg PO DAILY 11/02/20 [History] Ondansetron [Zofran ODT] 4 mg PO Q4H PRN #30 tab.dis 11/07/20 [Rx] Scopolamine 1 each TD ONCALL #5 patch.td.3 11/11/20 [Rx] Past Medical History Cardiovascular History: Reports: High Cholesterol Gastrointestinal History: Reports: Inflammatory Bowel Disease (Ulcerative colitis) Neurological History: Reports: Parkinson's - Infectious Disease History Infectious Disease History: Reports: Chicken Pox, Measles, Mumps - Past Surgical History GI Surgical History: Reports: Other (See Below) Other GI Surgeries/Procedures: illiostomy 1991 Social & Family History - Family History Family Medical History: No Pertinent Family History - Tobacco Use Tobacco Use Status *Q: Never Tobacco User - Caffeine Use Caffeine Use: Reports: Soda - Recreational Drug Use Recreational Drug Use: No ED ROS GENERAL - Review of Systems Review Of Systems: See Below Constitutional: Reports: No Symptoms HEENT: Reports: Other (Dry mouth) Respiratory: Reports: No Symptoms Cardiovascular: Reports: No Symptoms GI/Abdominal: Reports: Nausea, Vomiting. Denies: Abdominal Pain : Reports: No Symptoms ED EXAM, GI/ABD - Physical Exam Exam: See Below Exam Limited By: No Limitations General Appearance: Alert, WD/WN, No Apparent Distress Respiratory/Chest: No Respiratory Distress, Lungs Clear, Normal Breath Sounds, No Accessory Muscle Use, Chest Non-Tender Cardiovascular: Regular Rate, Rhythm, No Murmur GI/Abdominal Exam: Soft, Non-Tender Course - Vital Signs Last Recorded V/S: Last Vital Signs Temp 97.1 F 11/11/20 15:22 Pulse 89 11/11/20 18:41 Resp 18 11/11/20 15:22 BP 128/54 L 11/11/20 18:41 Pulse Ox 95 11/11/20 18:41 - Orders/Labs/Meds Orders: Active Orders 24 hr Category Date Time Status Peripheral IV Care [RC] . DIRECTED Care 11/11/20 15:41 Active BASIC METABOLIC PANEL,BMP [CHEM] Urgent Lab 11/11/20 18:28 Results Sodium Chloride 0.9% [Saline Flush] Med 11/11/20 15:41 Active 10 ml FLUSH ASDIRECTED PRN Peripheral IV Insertion Adult [OM.PC] Urgent Oth 11/11/20 15:41 Ordered Medication Orders Sodium Chloride (Sodium Chloride 0.9% 10 Ml Syringe) 10 ml FLUSH ASDIRECTED PRN PRN Reason: Keep Vein Open Last Admin: 11/11/20 16:41 Dose: 10 ml Documented by: LILY Labs: Laboratory Tests 11/11/20 11/11/20 11/11/20 Range/Units 15:54 15:54 18:13 WBC 12.6 H (4.5-11.0) K/uL RBC 5.24 (3.30-5.50) M/uL Hgb 16.2 H D (12.0-15.0) g/dL Hct 46.0 (36.0-48.0) % MCV 88 (80-98) fL MCH 31 (27-31) pg MCHC 35 (32-36) % Plt Count 326 (150-400) K/uL Neut % (Auto) 84 H (36-66) % Lymph % (Auto) 8 L (24-44) % Sullivan % (Auto) 8 H (2-6) % Eos % (Auto) 0 L (2-4) % Baso % (Auto) 0 (0-1) % Sodium 127 L (140-148) mmol/L Potassium 4.6 (3.6-5.2) mmol/L Chloride 81 L (100-108) mmol/L Carbon Dioxide 30 (21-32) mmol/L Anion Gap 20.6 H (5.0-14.0) mmol/L BUN 59 H D (7-18) mg/dL Creatinine 3.5 H (0.6-1.0) mg/dL Est Cr Clr Drug Dosing 11.95 mL/min Estimated GFR (MDRD) 13 L (>60) Glucose 119 H (74-106) mg/dL Calcium 9.8 (8.5-10.1) mg/dL Total Bilirubin 0.7 (0.2-1.0) mg/dL AST 12 L (15-37) U/L ALT 24 D (12-78) U/L Alkaline Phosphatase 89 (46-116) U/L Total Protein 8.5 H (6.4-8.2) g/dL Albumin 4.2 (3.4-5.0) g/dL Globulin 4.3 H (2.3-3.5) g/dL Albumin/Globulin Ratio 1.0 L (1.2-2.2) Urine Color Yellow (YELLOW) Urine Appearance Cloudy A (CLEAR) Urine pH 5.0 (5.0-8.0) Ur Specific Hyndman >= 1.030 (1.008-1.030) Urine Protein 30 H (NEGATIVE) mg/dL Urine Glucose (UA) Negative (NEGATIVE) mg/dL Urine Ketones 15 H (NEGATIVE) mg/dL Urine Occult Blood Small H (NEGATIVE) Urine Nitrite Negative (NEGATIVE) Urine Bilirubin Negative (NEGATIVE) Urine Urobilinogen 0.2 (0.2-1.0) EU/dL Ur Leukocyte Esterase Negative (NEGATIVE) Urine RBC 0-5 (0-5) Urine WBC 0-5 (0-5) Ur Epithelial Cells Few Amorphous Sediment Moderate Urine Bacteria Moderate Urine Mucus Few Urine Other 11/11/20 Range/Units 18:28 WBC (4.5-11.0) K/uL RBC (3.30-5.50) M/uL Hgb (12.0-15.0) g/dL Hct (36.0-48.0) % MCV (80-98) fL MCH (27-31) pg MCHC (32-36) % Plt Count (150-400) K/uL Neut % (Auto) (36-66) % Lymph % (Auto) (24-44) % Sullivan % (Auto) (2-6) % Eos % (Auto) (2-4) % Baso % (Auto) (0-1) % Sodium (140-148) mmol/L Potassium (3.6-5.2) mmol/L Chloride (100-108) mmol/L Carbon Dioxide (21-32) mmol/L Anion Gap (5.0-14.0) mmol/L BUN (7-18) mg/dL Creatinine 3.0 H (0.6-1.0) mg/dL Est Cr Clr Drug Dosing 13.94 mL/min Estimated GFR (MDRD) 15 L (>60) Glucose (74-106) mg/dL Calcium (8.5-10.1) mg/dL Total Bilirubin (0.2-1.0) mg/dL AST (15-37) U/L ALT (12-78) U/L Alkaline Phosphatase (46-116) U/L Total Protein (6.4-8.2) g/dL Albumin (3.4-5.0) g/dL Globulin (2.3-3.5) g/dL Albumin/Globulin Ratio (1.2-2.2) Urine Color (YELLOW) Urine Appearance (CLEAR) Urine pH (5.0-8.0) Ur Specific Hyndman (1.008-1.030) Urine Protein (NEGATIVE) mg/dL Urine Glucose (UA) (NEGATIVE) mg/dL Urine Ketones (NEGATIVE) mg/dL Urine Occult Blood (NEGATIVE) Urine Nitrite (NEGATIVE) Urine Bilirubin (NEGATIVE) Urine Urobilinogen (0.2-1.0) EU/dL Ur Leukocyte Esterase (NEGATIVE) Urine RBC (0-5) Urine WBC (0-5) Ur Epithelial Cells Amorphous Sediment Urine Bacteria Urine Mucus Urine Other Meds: Medications Generic Name Dose Route Start Last Admin Trade Name Freq PRN Reason Stop Dose Admin Sodium Chloride 10 ml 11/11/20 15:41 11/11/20 16:41 Sodium Chloride 0.9% 10 Ml Syringe FLUSH 10 ml ASDIRECTED PRN Administration Keep Vein Open Discontinued Medications Generic Name Dose Route Start Last Admin Trade Name Scooby PRN Reason Stop Dose Admin Lactated Ringer's 1,000 mls @ 999 mls/hr 11/11/20 15:41 11/11/20 16:39 Ringers, Lactated IV 11/11/20 16:41 999 mls/hr BOLUS ONE Administration Lactated Ringer's 1,000 mls @ 999 mls/hr 11/11/20 17:35 11/11/20 17:43 Ringers, Lactated IV 11/11/20 18:35 999 mls/hr BOLUS ONE Administration Prochlorperazine Edisylate 5 mg 11/11/20 15:42 11/11/20 16:41 Prochlorperazine 10 Mg/2 Ml Sdv IVPUSH 11/11/20 15:43 5 mg ONETIME ONE Administration Scopolamine 1.5 mg 11/11/20 15:42 11/11/20 16:39 Scopolamine 1.5 Mg Transdermal Patch TRDERM 11/11/20 15:43 1.5 mg NOW STA Administration Departure - Departure Time of Disposition: 18:44 Disposition: Home, Self-Care 01 Condition: Fair Clinical Impression: Dehydration - Discharge Information Prescriptions: Scopolamine 1 each TD ONCALL #5 patch.td.3 Instructions: Dehydration, Adult, [id number] Referrals: Mallory Richardson MD [Primary Care Provider] - Forms: ED Department Discharge Additional Instructions: Your medications Scopolamine has been faxed to [facility], continue to push fluids mainly liquids, slowly advance your diet start with soups and advance as tolerated recommend following up with your primary care in the next 3 to 5 days for reevaluation to make sure your kidney function has corrected itself call or return to the emergency department worsening of symptoms Sepsis Event Note (ED) - Evaluation Sepsis Screening Result: No Definite Risk - Focused Exam Vital Signs: Vital Signs Temp Pulse Resp BP Pulse Ox 11/11/20 18:41 89 128/54 L 95 11/11/20 17:21 96 129/69 96 11/11/20 16:20 98 127/76 11/11/20 15:36 94 132/81 97 11/11/20 15:22 97.1 F 100 18 152/80 H 95 11/11/20 14:57 97.1 F 100 16 152/80 H 95 - My Orders Last 24 Hours: My Active Orders 11/11/20 15:41 Peripheral IV Care [RC] . DIRECTED Sodium Chloride 0.9% [Saline Flush] 10 ml FLUSH ASDIRECTED PRN Peripheral IV Insertion Adult [OM.PC] Urgent 11/11/20 18:28 BASIC METABOLIC PANEL,BMP [CHEM] Urgent - Assessment/Plan Last 24 Hours: My Active Orders 11/11/20 15:41 Peripheral IV Care [RC] . DIRECTED Sodium Chloride 0.9% [Saline Flush] 10 ml FLUSH ASDIRECTED PRN Peripheral IV Insertion Adult [OM.PC] Urgent 11/11/20 18:28 BASIC METABOLIC PANEL,BMP [CHEM] Urgent Plan: Assessment Acuity = acute Site and laterality = dehydration Etiology = poor oral intake Manifestations = nausea with dry heaves producing acute renal failure Location of injury = Home Lab values = WBC slightly elevated 12.6 consistent leukocytosis hemoglobin elevated 16.2 probably to volume contraction sodium low at 127 consistent hyponatremia creatinine elevated 3.5 consistent acute renal failure stage G5 this did improve to 3.0 with 1-1/2 L of fluid Plan I did review lab work with her I believe the biggest problem is she has had no oral intake because of the nausea and vomiting she had good improvement with the scopolamine patch I have faxed 5 patches over to [facility] she had good improvement in renal function with fluids she is now able to eat and drink and I believe this will correct itself with oral intake follow-up primary care 3 to 5 days if not better This note was dictated using [employer] voice recognition software please call with any questions on syntax or grammar.
== END 2020-11-11 19:05 | disposition home or self-care (01) ==
LOC: JP.ED 14:07
DX: E86.0 Dehydration (principal); G20 Parkinson's disease; Z79.82 Long term (current) use of aspirin; Z79.899 Other long term (current) drug therapy
CPT/HCPCS: 36415; 80048; 80053; 81001; 85025; 96374; 99284; A9270; J0780; J7120

== ENCOUNTER 2020-11-15 11:04 | Inpatient (IN) | payer MEDICARE, BC ==
[~2020-11-15 11:04] MED LIST: Acetaminophen 500 MG Tab PO ONE; Bupivacaine 0.5%/EPINEPHrine 1:200,000 50 ML MDV ONE; Dexamethasone 4 MG/ML SDV ONE; Glycopyrrolate 0.2 MG/ML 5 ML MDV ONE; Meropenem 500 MG SDV ONE; Neostigmine Methylsulfate 1 MG/ML 5 ML Syringe ONE; Ondansetron 4 MG/2 ML SDV ONE; Propofol 200 MG/20 ML SDV ONE; Rocuronium 50 MG/5 ML Vial ONE; Scopolamine 1.5 MG Transdermal Patch TOP SCH; Succinylcholine 200 MG/10 ML MDV ONE; fentaNYL 250 MCG/5 ML SDV ONE
[2020-11-15] MEDS ORDERED: Dextrose 5%-Lactated Ringers 1,000 ML IV SCH (12:00)
[2020-11-15] MEDS ORDERED: cefOXitin 2 GM in Sodium Chloride 0.9% 50 ML IV ONE (12:30)
[2020-11-15] MEDS ORDERED: Ketamine 50 MG in Sodium Chloride 0.9% 49.5 ML IV SCH (13:00)
[2020-11-15] MEDS ORDERED: Ketamine 500 MG/5 ML MDV IV SCH (13:00)
[2020-11-15] MEDS: Lidocaine 1% with EPINEPHrine 1:100,000 50 ML MDV ONE ×2 (13:38→14:15)
[2020-11-15] MEDS: Bupivacaine 0.5% 50 ML MDV ONE ×2 (13:39→14:15)
[2020-11-15] MEDS ORDERED: Lactated Ringers 1,000 ML ONE (13:56)
[2020-11-15] MEDS ORDERED: fentaNYL 100 MCG/2 ML SDV ONE (14:00)
[2020-11-15] MEDS ORDERED: Naloxone 0.4 MG/ML SDV IVPUSH PRN (15:00)
[2020-11-15] MEDS ORDERED: Ondansetron 4 MG/2 ML SDV IVPUSH PRN ×2 (15:00→16:26)
[2020-11-15] MEDS ORDERED: HYDROmorphone/Normal Saline 15 MG/30 ML PCA IV PRN (15:00)
[2020-11-15] MEDS ORDERED: diphenhydrAMINE 25 MG Cap PO PRN (15:00)
[2020-11-15] MEDS ORDERED: diphenhydrAMINE 50 MG/ML SDV IVPUSH PRN (15:00)
[2020-11-15] MEDS ORDERED: Cyclobenzaprine 10 MG Tab PO PRN (16:29)
[2020-11-15] MEDS ORDERED: hydrOXYzine HCL 100 MG/2 ML SDV IM PRN (16:30)
[2020-11-15] MEDS: cefOXitin 2 GM in Sodium Chloride 0.9% 50 ML IV SCH (17:32)
[2020-11-15] MEDS: Dextrose 5%-0.9% NaCl with KCl 1,000 ML IV SCH (17:32)
[2020-11-15] MEDS: Acetaminophen 325 MG Tab PO SCH (17:35)
[2020-11-15] MEDS: Potassium Phos in 0.9 % NaCl 15 MMOL in Premix Bag 1 BAG IV SCH ×4 (18:34→22:19)
[2020-11-15] MEDS ORDERED: Carbidopa/Levodopa 25-100 MG Tab PO SCH (21:00)
[2020-11-16] MEDS: Dextrose 5%-0.9% NaCl with KCl 1,000 ML IV SCH (00:52)
[2020-11-16] MEDS: Acetaminophen 325 MG Tab PO SCH ×5 (00:53→23:38)
[2020-11-16] MEDS: cefOXitin 2 GM in Sodium Chloride 0.9% 50 ML IV SCH ×3 (01:29→13:29)
[2020-11-16] MEDS: Aspirin 325 MG Tab.EC PO SCH (08:04)
[2020-11-16] MEDS: atorvaSTATin 20 MG Tab PO SCH (08:04)
[2020-11-16] MEDS: Carbidopa/Levodopa 25-100 MG Tab PO SCH ×3 (08:04→17:12)
[2020-11-16] MEDS ORDERED: Dextrose 5%-0.9% NaCl with KCl 1,000 ML IV SCH (08:45)
[2020-11-16] MEDS ORDERED: Propranolol 80 MG Cap.ER PO SCH (09:00)
[2020-11-16] MEDS: Magnesium Hydroxide 400 MG/5 ML Susp 30 ML Cup PO SCH ×2 (09:02→21:39)
[2020-11-16] MEDS: Bisacodyl 5 MG Tab PO SCH ×2 (09:02→21:39)
[2020-11-16] MEDS: NACL IV SCH (10:44)
[2020-11-16] MEDS: POTASSIUM PHOSPHATES IV SCH (10:44)
[2020-11-16] MEDS: DEXTROSE IV SCH (10:44)
[2020-11-16] MEDS: Magnesium Sulfate/Water 2 GM/50 ML BAG IV SCH ×3 (10:47→21:40)
[2020-11-16] MEDS: Potassium Phos in 0.9 % NaCl 15 MMOL in Premix Bag 1 BAG IV SCH ×8 (10:47→21:37)
[2020-11-16] MEDS ORDERED: Furosemide 20 MG/2 ML VIAL IV ONE (12:00)
[2020-11-16] MEDS ORDERED: Furosemide 20 MG/2 ML VIAL IVPUSH ONE (17:00)
[2020-11-17] MEDS: Magnesium Sulfate/Water 2 GM/50 ML BAG IV SCH ×4 (02:51→21:24)
[2020-11-17] MEDS: DEXTROSE IV SCH ×2 (03:52→20:25)
[2020-11-17] MEDS: POTASSIUM PHOSPHATES IV SCH ×2 (03:52→20:25)
[2020-11-17] MEDS: NACL IV SCH ×2 (03:52→20:25)
[2020-11-17] MEDS: Acetaminophen 325 MG Tab PO SCH ×4 (06:04→23:24)
[2020-11-17] MEDS: Carbidopa/Levodopa 25-100 MG Tab PO SCH ×4 (06:46→15:49)
[2020-11-17] MEDS: Propranolol 80 MG Cap.ER PO SCH ×2 (06:48→09:02)
[2020-11-17] MEDS ORDERED: Meropenem 500 MG SDV ONE (06:52)
[2020-11-17] MEDS ORDERED: Bupivacaine 0.5% 50 ML MDV ONE (06:52)
[2020-11-17] MEDS ORDERED: Lidocaine 1% with EPINEPHrine 1:100,000 50 ML MDV ONE (06:52)
[2020-11-17] MEDS ORDERED: Propofol 200 MG/20 ML SDV ONE (07:29)
[2020-11-17] MEDS ORDERED: fentaNYL 100 MCG/2 ML SDV ONE (07:29)
[2020-11-17] MEDS ORDERED: HYDROmorphone 2 MG Tab PO PRN (09:26)
[2020-11-17] MEDS: atorvaSTATin 20 MG Tab PO SCH (09:27)
[2020-11-17] MEDS: Aspirin 325 MG Tab.EC PO SCH (09:27)
[2020-11-17] MEDS: Magnesium Hydroxide 400 MG/5 ML Susp 30 ML Cup PO SCH ×2 (09:29→21:20)
[2020-11-17] MEDS: Furosemide 20 MG/2 ML VIAL IV SCH ×2 (09:43→15:49)
[2020-11-17] MEDS: Calcium Carbonate 500 MG Tab.Chew PO SCH ×3 (10:31→21:23)
[2020-11-17] MEDS: Potassium Phos in 0.9 % NaCl 15 MMOL in Premix Bag 1 BAG IV SCH ×6 (10:32→18:46)
[2020-11-18] MEDS ORDERED: Carbidopa/Levodopa 25-100 MG Tab PO ONE (00:36)
[2020-11-18] MEDS ORDERED: LORazepam 0.5 MG Tab ONE (01:25)
[2020-11-18] MEDS: LORazepam 0.5 MG Tab PO PRN ×2 (01:26→23:12)
[2020-11-18] MEDS: Magnesium Sulfate/Water 2 GM/50 ML BAG IV SCH (04:00)
[2020-11-18] MEDS: Acetaminophen 325 MG Tab PO SCH ×4 (05:41→23:12)
[2020-11-18] MEDS: Calcium Carbonate 500 MG Tab.Chew PO SCH ×4 (05:42→21:18)
[2020-11-18] MEDS: Propranolol 80 MG Cap.ER PO SCH ×2 (06:48→07:40)
[2020-11-18] MEDS: Carbidopa/Levodopa 25-100 MG Tab PO SCH ×4 (06:48→15:43)
[2020-11-18] MEDS ORDERED: Potassium Phosphates 45 MMOLE in Sodium Chloride 0.9% 250 ML IV SCH (07:15)
[2020-11-18] MEDS ORDERED: Calcium Carbonate 500 MG Tab.Chew PO ONE (08:00)
[2020-11-18] MEDS: Potassium Phos in 0.9 % NaCl 15 MMOL in Premix Bag 1 BAG IV SCH ×6 (08:41→17:15)
[2020-11-18] MEDS: Magnesium Hydroxide 400 MG/5 ML Susp 30 ML Cup PO SCH ×2 (08:45→20:36)
--- NOTE | 2020-11-18 09:15 | PN ---
DATE OF SERVICE: 11/18/2020 SUBJECTIVE: Tish reported that in the past 24 hours has gradually increasing tremors from her Parkinson. She was diagnosed with Parkinson's September of 2019. Her provider is a neurologist who specializes in movement disorders, her name is Ivy Beavers MD, at [facility] in [place], [place]. Calcium has been low. On admission, it was 8.6, then went down to 7.2, and on 11/17, 6.7, and on 11/18 was 7, but her ionized calcium was 0.94 with normal 1.12 to 1.32. She has been taking all of her medications with the exception of Fosamax which she takes for osteoporosis, and she has not had it the last 2 weeks. She was given propranolol and Sinemet at 1 does early. Vital signs have been stable. Afebrile. Oral intake 1440. Urine output 3850, and she has been emptying out her own ileostomy. REVIEW OF SYSTEMS: Remainder of review of systems negative for any pertinent positives and negatives. OBJECTIVE: GENERAL: Tish is a pleasant 75-year-old female. She is alert and orientated. Involuntary tremors in upper and lower extremities noted. VITAL SIGNS: TPR is 96.4, 60, 16, blood pressure 117/71. HEENT: Negative. NECK: Supple. HEART: Regular rate and rhythm. LUNGS: Clear. ABDOMEN: Dressings dry and intact. Abdominal binder is on. EXTREMITIES: Without peripheral edema. ASSESSMENT: 1. Exasperation of Parkinson disease with increased tremors. 2. Delayed primary closure for open abdominal incision on 11/17/2020. 3. Exploratory laparotomy with: a. Takedown of previous ileostomy. b. Formation of near end ileostomy. c. Repair of incarcerated peristomal hernia with mesh. d. Repair of separate periumbilical incisional hernia with mesh x2. e. Placement of Interceed mesh. POSTOPERATIVE DIAGNOSES: 1. 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 2. Separate periumbilical non-incarcerated incisional hernia. Date of procedure 11/15/2020. Surgeon: Pete Andrews MD. PLAN: 1. Consult hospitalist for Parkinson disease and low calcium. Courtesy call will be given at [phone]. 2. Give propranolol and Sinemet now. 3. Six Tums given 1 hour after propranolol and Sinemet. 4. Four Tums q.i.d. oral. 5. Saline lock IV. 6. K-Phos 45 millimoles IV. 7. Check CBC, CMP, BNP, and phosphorous in a.m. 8. We will evaluate p.r.n. or in a.m. Becky Ramos PA-C /[id number]
--- NOTE | 2020-11-18 10:12 | PCM.CONS ---
H&P History of Present Illness - General Date of Service: 11/18/20 Admit Problem/Dx: Admission Diagnosis/Problem Admission Diagnosis/Problem Exploratory laparotomy Source of Information: Patient, Provider History Limitations: Reports: No Limitations - History of Present Illness Initial Comments - Free Text/Narative: CC: my Parkinson's is so bad HPI: I was asked by Dr. Andrews to see Tish today regarding an increase in her Parkinson's symptoms as well as hypocalcemia. She was recently admitted for management of a persistent obstruction due to an old and poorly functioning ostomy. Over the weekend she developed increasing Parkinson symptoms as well as hypocalcemia. She reports her tremor was so bad yesterday and today that she could not hold onto anything. This is a dramatic increase from her baseline. Symptoms are better this morning after receiving a large dose of calcium carbonate. She does not report any paresthesias, muscle spasms or tetany. She does not report any abdominal pain today. No nausea. She is tolerating her diet. She has not had any fevers. Her ostomy is functioning. - Related Data Allergies/Adverse Reactions: Allergies Allergy/AdvReac Type Severity Reaction Status Date / Time No Known Allergies Allergy Verified 11/15/20 11:19 Home Medications: Home Meds atorvaSTATin [Lipitor] 20 mg PO BEDTIME 12/25/17 [History] Alendronate Sodium [Fosamax] 70 mg PO WEEKLY 11/02/20 [History] Aspirin 325 mg PO QPM 11/02/20 [History] Carbidopa/Levodopa [Carbidopa-Levodopa 25-100] 2 tab PO TID@0800,1200,1600 11/02/20 [History] Propranolol [Inderal LA] 80 mg PO DAILY 11/02/20 [History] Ondansetron [Zofran ODT] 4 mg PO Q4H PRN #30 tab.dis 11/07/20 [Rx] Calcium Carbonate/Vitamin D3 [Calcium Carbonate/Vitamin D 600 MG-200 Unit] 1 tab PO BID 11/14/20 [History] Past Medical History HEENT History: Reports: None Cardiovascular History: Reports: High Cholesterol Respiratory History: Reports: None Gastrointestinal History: Reports: Inflammatory Bowel Disease Genitourinary History: Reports: None W[employer] CONSERVATION SPECIALIST History: Reports: None Musculoskeletal History: Reports: None Neurological History: Reports: Parkinson's Psychiatric History: Reports: None Endocrine/Metabolic History: Reports: None Hematologic History: Reports: None Oncologic (Cancer) History: Reports: None Dermatologic History: Reports: None - Infectious Disease History Infectious Disease History: Reports: Chicken Pox, Measles, Mumps - Past Surgical History HEENT Surgical History: Reports: None Respiratory Surgical History: Reports: None GI Surgical History: Reports: Other (See Below) Other GI Surgeries/Procedures: illiostomy 1992 Female Surgical History: Reports: Tubal Ligation Neurological Surgical History: Reports: None Musculoskeletal Surgical History: Reports: None Oncologic Surgical History: Reports: None Social & Family History - Family History Family Medical History: No Pertinent Family History - Tobacco Use Tobacco Use Status *Q: Never Tobacco User - Caffeine Use Caffeine Use: Reports: None - Alcohol Use Alcohol Use History: No - Recreational Drug Use Recreational Drug Use: No H&P Review of Systems - Review of Systems: Review Of Systems: See Below Free Text/Narrative: A complete 12 point review of systems was obtained. Pertinent positives and negatives are noted in the history of present illness. All other systems were reviewed and were negative except as noted. Exam - Exam Exam: See Below - Vital Signs Vital Signs: Last Vital Signs Temp 35.8 C L 11/18/20 07:16 Pulse 60 11/18/20 07:16 Resp 16 11/18/20 07:16 BP 117/71 11/18/20 07:16 Pulse Ox 94 L 11/18/20 07:16 Weight: 56.88 kg - Exam Quality Assessment: No: Supplemental Oxygen General: Alert, Oriented, Cooperative. No: Mild Distress HEENT: Conjunctiva Clear, Mucosa Moist & Bruce Lungs: Normal Respiratory Effort. No: Wheezing Cardiovascular: Regular Rate, Regular Rhythm GI/Abdominal Exam: Soft, No Distention Extremities: No Pedal Edema. No: Increased Warmth Skin: Warm, Dry Neuro Extensive - Mental Status: Alert, Oriented x3, Nl Response to Commands Neuro Extensive - Motor, Sensory, Reflexes: Tremor. No: Dysarthria Psychiatric: Alert, Normal Affect - Patient Data Lab Results Last 24 hrs: Laboratory Results - last 24 hr 11/18/20 11/18/20 11/18/20 Range/Units 04:10 04:10 04:10 WBC 9.5 (4.5-11.0) K/uL RBC 3.25 L (3.30-5.50) M/uL Hgb 9.9 L (12.0-15.0) g/dL Hct 31.1 L (36.0-48.0) % MCV 96 (80-98) fL MCH 31 (27-31) pg MCHC 32 (32-36) % Plt Count 195 (150-400) K/uL Sodium 138 L (140-148) mmol/L Potassium 4.1 (3.6-5.2) mmol/L Chloride 102 (100-108) mmol/L Carbon Dioxide 28 (21-32) mmol/L Anion Gap 12.1 (5.0-14.0) mmol/L BUN 7 (7-18) mg/dL Creatinine 0.6 (0.6-1.0) mg/dL Est Cr Clr Drug Dosing 71.63 mL/min Estimated GFR (MDRD) > 60 (>60) Glucose 122 H (74-106) mg/dL Calcium 7.0 L (8.5-10.1) mg/dL POC WB Ioniz Calcium 0.94 L* (1.12-1.32) mmol/L Phosphorus 2.8 (2.5-4.9) mg/dL Magnesium 3.4 H D (1.8-2.4) mg/dL Total Bilirubin 0.4 (0.2-1.0) mg/dL AST 23 (15-37) U/L ALT 9 L (12-78) U/L Alkaline Phosphatase 54 (46-116) U/L NT-Pro-B Natriuret Pep 2925 H (5-450) pg/mL Total Protein 5.2 L (6.4-8.2) g/dL Albumin 2.6 L (3.4-5.0) g/dL Globulin 2.6 (2.3-3.5) g/dL Albumin/Globulin Ratio 1.0 L (1.2-2.2) Result Diagrams: 11/18/20 04:10 11/18/20 04:10 Sepsis Event Note - Evaluation Sepsis Screening Result: No Definite Risk - Focused Exam Vital Signs: Vital Signs Temp Pulse Resp BP Pulse Ox 11/18/20 07:16 35.8 C L 60 16 117/71 94 L 11/18/20 04:09 35.9 C L 66 18 123/54 L 97 Consult PN Assessment/Plan Procedures: Procedures ANTINUCLEAR ANTIBODIES (11/02/20) ASSAY OF LACTIC ACID (11/02/20) ASSAY OF LIPASE (11/02/20) ASSAY OF MAGNESIUM (11/02/20) ASSAY OF NATRIURETIC PEPTIDE (11/02/20) ASSAY OF PHOSPHORUS (11/02/20) BLOOD SMEAR INTERPRETATION (11/02/20) BREAST TOMOSYNTHESIS BI (04/29/20) C-REACTIVE PROTEIN (11/02/20) COMP SCREEN MAMMOGRAM ADD-ON (01/27/16) COMPLETE CBC AUTOMATED (11/02/20) COMPLETE CBC W/AUTO DIFF WBC (11/11/20) COMPREHEN METABOLIC PANEL (11/11/20) CT ABD & PELV W/CONTRAST (11/02/20) CT ANGIOGRAPHY NECK (01/04/18) CT HEAD/BRAIN W/O DYE (12/25/17) EMERGENCY DEPT VISIT (11/11/20) EMERGENCY DEPT VISIT (11/02/20) EMERGENCY DEPT VISIT (12/25/17) METABOLIC PANEL TOTAL CA (11/11/20) NEUROMUSCULAR REEDUCATION (10/22/20) PT EVAL LOW COMPLEX 20 MIN (09/10/20) RBC SED RATE NONAUTOMATED (11/02/20) ROUTINE VENIPUNCTURE (11/11/20) SCR MAMMO BI INCL CAD (04/29/20) THER/PROPH/DIAG INJ IV PUSH (11/11/20) THERAPEUTIC EXERCISES (09/17/20) TTE W/DOPPLER COMPLETE (01/10/18) URINALYSIS AUTO W/SCOPE (11/11/20) X-RAY EXAM ABDOMEN 2 VIEWS (11/02/20) X-RAY EXAM ABDOMEN 3+ VIEWS (11/02/20) X-RAY EXAM CHEST 1 VIEW (11/02/20) Problem List Initiated/Reviewed/Updated: Yes My Orders Last 24 Hours: My Active Orders 11/18/20 09:48 Consult to Physical Therapy [PT Evaluation and Treatment] [CONS] Routine 11/18/20 16:00 Calcium Carbonate [Tums] 1,000 mg PO QID Plan: ASSESSMENT AND RECOMMENDATIONS - Hypocalcemia-calcium level was normal on arrival and is mildly reduced at this time as is her ionized calcium. Main symptoms at this time include increased tremor with her Parkinson's. No red flag symptoms to suggest need for IV replacement. Examination is benign. She is feeling better after receiving a dose of calcium carbonate this morning. -Agree with calcium carbonate per surgery orders -Repeat calcium in the morning -Anticipate her level will improve with supplementation -Symptoms have already improved with supplementation History of ulcerative colitis and previous ostomy formation-remote history of initial surgery. Recent revision because of persistent obstruction. Clinically doing well postoperatively. -Postoperative care as per surgical team Parkinson's disease-increase in symptoms over the past couple of days but better as calcium is being supplemented. Anticipate her symptoms will continue to improve and normalize with calcium supplementation. -Continue home medications -Hypocalcemia management as above Miguel Angel Kaye MD Requesting Provider: Dr Andrews Date Consult Requested: 11/18/20 Reason for Consult: hypocalcemia Patient History Reviewed: Yes Admission H&P Reviewed: No Notified Requestor: No Time Spent (in minutes): 45
[2020-11-18] MEDS: DEXTROSE IV SCH (12:04)
[2020-11-18] MEDS: POTASSIUM PHOSPHATES IV SCH (12:04)
[2020-11-18] MEDS: NACL IV SCH (12:04)
[2020-11-18] MEDS ORDERED: Sodium Chloride 0.9% 10 ML Syringe IV PRN (15:12)
[2020-11-18] MEDS: atorvaSTATin 20 MG Tab PO SCH (20:41)
[2020-11-18] MEDS: Aspirin 325 MG Tab.EC PO SCH (20:42)
[2020-11-19] MEDS: LORazepam 0.5 MG Tab PO PRN ×2 (04:49→21:36)
[2020-11-19] MEDS: Calcium Carbonate 500 MG Tab.Chew PO SCH ×4 (05:12→21:36)
[2020-11-19] MEDS: Acetaminophen 325 MG Tab PO SCH ×4 (05:12→23:58)
[2020-11-19] MEDS: Carbidopa/Levodopa 25-100 MG Tab PO SCH ×3 (07:03→15:41)
[2020-11-19] MEDS: Propranolol 80 MG Cap.ER PO SCH (07:24)
[2020-11-19] MEDS ORDERED: Furosemide 20 MG/2 ML VIAL IVPUSH SCH (08:00)
[2020-11-19] MEDS: Magnesium Hydroxide 400 MG/5 ML Susp 30 ML Cup PO SCH ×3 (08:28→21:39)
--- NOTE | 2020-11-19 10:24 | PN ---
DATE OF SERVICE: 11/19/2020 SUBJECTIVE: Tish did have a decrease in her tremors yesterday morning after taking the calcium, Sinemet, and propranolol, but she states she had a very rough night and reports it as "scary." Had the tremors all night long. Vital signs have been stable. Involuntary tremors are noted in upper and lower extremities. She has been urinating without difficulty and ileostomy is working well. LABORATORY DATA: Labs this morning show a hemoglobin at 10.9, calcium is 8.1, BNP is 3826. REVIEW OF SYSTEMS: Remainder of review of systems negative for any pertinent positives and negatives. OBJECTIVE: GENERAL: Tish Finnegan is a very pleasant 75-year-old female, alert and orientated. VITAL SIGNS: TPR 96.9, 65, 18, blood pressure 141/75. HEENT: Negative. NECK: Supple. HEART: Regular rate and rhythm. LUNGS: Clear. ABDOMEN: Dressings dry and intact. Ileostomy intact. EXTREMITIES: Without peripheral edema. ASSESSMENT: 1. Exacerbation of Parkinson's disease with increased tremors. 2. Delayed primary closure for open abdominal incision on 11/17/2020. 3. Exploratory laparotomy with: a. Takedown of previous ileostomy. b. Formation of near end ileostomy. c. Repair of incarcerated parastomal hernia with mesh. d. Repair of separate umbilical incisional hernia with mesh x2. e. Placement of Interceed mesh. POSTOPERATIVE DIAGNOSES: 1. 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 2. Separate periumbilical non incarcerated incisional hernia. 3. Date of procedure: 11/15/2020. Surgeon: Pete Andrews MD. PLAN: 1. Continue to consult with Dr. Kaye in regard to Parkinson's. 2. Lasix 20 mg IV now and repeat at 1400 today only. 3. Check CBC, CMP, magnesium, phosphorus, and ionized calcium in a.m. 4. We will evaluate p.r.n. or in a.m. Becky Ramos PA-C /[id number]
--- NOTE | 2020-11-19 11:33 | PCM.CONSN ---
- General Info Date of Service: 11/19/20 Subjective Update: Patient had some difficulty with increasing tremors overnight. Minimal improvement with lorazepam. Still feels more shaky than usual today with hands and feet involved mostly. No significant abdominal pain or nausea. No headache. Calcium level has improved. No paresthesias. Functional Status: Reports: Pain Controlled, Tolerating Diet - Review of Systems General: Denies: Fever Neurological: Reports: Tremors - Patient Data Vitals - Most Recent: Last Vital Signs Temp 36.1 C 11/19/20 07:24 Pulse 65 11/19/20 07:24 Resp 18 11/19/20 07:24 BP 141/75 H 11/19/20 07:24 Pulse Ox 94 L 11/19/20 07:24 Weight - Most Recent: 56.88 kg I&O - Last 24 Hours: Intake & Output 11/18/20 11/19/20 11/19/20 22:59 06:59 14:59 Intake Total 500 900 Output Total 500 1450 Balance 0 -550 Lab Results Last 24 Hours: Laboratory Results - last 24 hr 11/19/20 11/19/20 Range/Units 04:05 04:05 WBC 7.4 (4.5-11.0) K/uL RBC 3.53 (3.30-5.50) M/uL Hgb 10.9 L (12.0-15.0) g/dL Hct 33.9 L (36.0-48.0) % MCV 96 (80-98) fL MCH 31 (27-31) pg MCHC 32 (32-36) % Plt Count 223 (150-400) K/uL Sodium 142 (140-148) mmol/L Potassium 5.3 H (3.6-5.2) mmol/L Chloride 105 (100-108) mmol/L Carbon Dioxide 28 (21-32) mmol/L Anion Gap 14.3 H (5.0-14.0) mmol/L BUN 6 L (7-18) mg/dL Creatinine 0.7 (0.6-1.0) mg/dL Est Cr Clr Drug Dosing 61.39 mL/min Estimated GFR (MDRD) > 60 (>60) Glucose 80 (74-106) mg/dL Calcium 8.1 L D (8.5-10.1) mg/dL Phosphorus 2.9 (2.5-4.9) mg/dL Total Bilirubin 0.4 (0.2-1.0) mg/dL AST 30 (15-37) U/L ALT 23 D (12-78) U/L Alkaline Phosphatase 62 (46-116) U/L NT-Pro-B Natriuret Pep 3826 H (5-450) pg/mL Total Protein 5.3 L (6.4-8.2) g/dL Albumin 2.6 L (3.4-5.0) g/dL Globulin 2.7 (2.3-3.5) g/dL Albumin/Globulin Ratio 1.0 L (1.2-2.2) Med Orders - Current: Current Medications Acetaminophen (Acetaminophen 325 Mg Tab) 650 mg PO Q6H [facility] Last Admin: 11/19/20 05:12 Dose: 650 mg Documented by: Aspirin (Aspirin 325 Mg Tab.Ec) 325 mg PO BEDTIME [facility] Last Admin: 11/18/20 20:42 Dose: 325 mg Documented by: Atorvastatin Calcium (Atorvastatin 20 Mg Tab) 20 mg PO BEDTIME [facility] Last Admin: 11/18/20 20:41 Dose: 20 mg Documented by: Calcium Carbonate/Glycine (Calcium Carbonate 500 Mg Tab.Chew) 1,000 mg PO QID [facility] Last Admin: 11/19/20 09:44 Dose: 1,000 mg Documented by: Carbidopa/Levodopa (Carbidopa/Levodopa 25-100 Mg Tab) 2 tab PO TID@0800,1200,1600 [facility] Last Admin: 11/19/20 07:03 Dose: 2 tab Documented by: Cyclobenzaprine HCl (Cyclobenzaprine 10 Mg Tab) 10 mg PO Q8H PRN PRN Reason: MUSCLE SPASM Hydromorphone HCl (Hydromorphone 2 Mg Tab) 2 mg PO Q4H PRN PRN Reason: PAIN Hydroxyzine HCl (Hydroxyzine Hcl 100 Mg/2 Ml Sdv) 75 mg IM Q4H PRN PRN Reason: PAIN Lorazepam (Lorazepam 0.5 Mg Tab) 0.5 mg PO Q4H PRN PRN Reason: Anxiety Last Admin: 11/19/20 04:49 Dose: 0.5 mg Documented by: Magnesium Hydroxide (Magnesium Hydroxide 400 Mg/5 Ml Susp 30 Ml Cup) 30 ml PO BID [facility] Last Admin: 11/19/20 08:28 Dose: Not Given Documented by: Ondansetron HCl (Ondansetron 4 Mg/2 Ml Sdv) 4 mg IVPUSH Q4H PRN PRN Reason: Nausea/Vomiting Propranolol HCl (Propranolol 80 Mg Cap.Er) 80 mg PO DAILY@0800 [facility] Last Admin: 11/19/20 07:24 Dose: 80 mg Documented by: Sodium Chloride (Sodium Chloride 0.9% 10 Ml Syringe) 10 ml IV ASDIRECTED PRN PRN Reason: LINE MAINTENCE Discontinued Medications Acetaminophen (Acetaminophen 500 Mg Tab) 1,000 mg PO ONETIME ONE Stop: 11/15/20 11:01 Last Admin: 11/15/20 11:55 Dose: 1,000 mg Documented by: Aspirin (Aspirin 325 Mg Tab.Ec) 325 mg PO DAILY [facility] Last Admin: 11/17/20 09:27 Dose: 325 mg Documented by: Atorvastatin Calcium (Atorvastatin 20 Mg Tab) 20 mg PO DAILY [facility] Last Admin: 11/17/20 09:27 Dose: 20 mg Documented by: Bisacodyl (Bisacodyl 5 Mg Tab) 10 mg PO BID [facility] Last Admin: 11/16/20 21:39 Dose: 10 mg Documented by: Bupivacaine HCl (Bupivacaine 0.5% 50 Ml Mdv) Confirm Administered Dose 50 ml .ROUTE .STK-MED ONE Stop: 11/15/20 13:12 Last Admin: 11/15/20 14:15 Dose: 20 ml Documented by: Bupivacaine HCl (Bupivacaine 0.5% 50 Ml Mdv) Confirm Administered Dose 50 ml .ROUTE .STK-MED ONE Stop: 11/17/20 06:53 Last Admin: 11/17/20 07:47 Dose: 10 ml Documented by: Bupivacaine HCl/Epinephrine Bitart (Bupivacaine 0.5%/Epinephrine 1:200,000 50 Ml Mdv) Confirm Administered Dose 50 ml .ROUTE .STK-MED ONE Stop: 11/15/20 07:09 Calcium Carbonate/Glycine (Calcium Carbonate 500 Mg Tab.Chew) 1,000 mg PO QID [facility] Last Admin: 11/18/20 09:58 Dose: 1,000 mg Documented by: Calcium Carbonate/Glycine (Calcium Carbonate 500 Mg Tab.Chew) 3,000 mg PO ONETIME ONE Stop: 11/18/20 08:01 Last Admin: 11/18/20 07:49 Dose: 3,000 mg Documented by: Carbidopa/Levodopa (Carbidopa/Levodopa 25-100 Mg Tab) 2 tab PO TID [facility] Last Admin: 11/15/20 20:34 Dose: 2 tab Documented by: Carbidopa/Levodopa (Carbidopa/Levodopa 25-100 Mg Tab) 2 tab PO ONETIME ONE Stop: 11/18/20 00:37 Last Admin: 11/18/20 00:46 Dose: 2 tab Documented by: Ropivacaine 29 ml/Dexamethasone 8 mg/Epinephrine HCl 0.4 mg/ Sodium Chloride 48.6 ml 0 ml NERVRT ASDIRECTED [facility] Last Admin: 11/15/20 13:26 Dose: 80 syringe Documented by: Ropivacaine 29 ml/Dexamethasone 8 mg/Epinephrine HCl 0.4 mg/ Sodium Chloride 48.6 ml 0 ml NERVRT ASDIRECTED [facility] Last Admin: 11/17/20 07:39 Dose: 80 syringe Documented by: Dexamethasone (Dexamethasone 4 Mg/Ml Sdv) Confirm Administered Dose 4 mg .ROUTE .STK-MED ONE Stop: 11/15/20 10:46 Diphenhydramine HCl (Diphenhydramine 50 Mg/Ml Sdv) 25 mg IVPUSH Q6H PRN PRN Reason: Itching Diphenhydramine HCl (Diphenhydramine 25 Mg Cap) 25 mg PO Q6H PRN PRN Reason: Itching Fentanyl (Fentanyl 250 Mcg/5 Ml Sdv) Confirm Administered Dose 250 mcg .ROUTE .STK-MED ONE Stop: 11/15/20 10:45 Fentanyl (Fentanyl 100 Mcg/2 Ml Sdv) Confirm Administered Dose 100 mcg .ROUTE .STK-MED ONE Stop: 11/15/20 14:01 Fentanyl (Fentanyl 100 Mcg/2 Ml Sdv) Confirm Administered Dose 100 mcg .ROUTE .STK-MED ONE Stop: 11/17/20 07:30 Furosemide (Furosemide 20 Mg/2 Ml Vial) 20 mg IV ONETIME ONE Stop: 11/16/20 12:01 Last Admin: 11/16/20 12:32 Dose: Not Given Documented by: Furosemide (Furosemide 20 Mg/2 Ml Vial) 20 mg IVPUSH ONETIME ONE Stop: 11/16/20 17:01 Last Admin: 11/16/20 17:42 Dose: 20 mg Documented by: Furosemide (Furosemide 20 Mg/2 Ml Vial) 20 mg IV Q6H [facility] Stop: 11/17/20 16:01 Last Admin: 11/17/20 15:49 Dose: 20 mg Documented by: Furosemide (Furosemide 20 Mg/2 Ml Vial) 20 mg IVPUSH BID@0800,1400 [facility] Stop: 11/19/20 14:01 Last Admin: 11/19/20 08:27 Dose: 20 mg Documented by: Glycopyrrolate (Glycopyrrolate 0.2 Mg/Ml 5 Ml Mdv) Confirm Administered Dose 1 mg .ROUTE .[facility] ONE Stop: 11/15/20 10:46 Hydromorphone HCl (Hydromorphone/Normal Saline 15 Mg/30 Ml Talent Acquisition Director) 0 mg IV ASDIRECTED PRN; Protocol PRN Reason: Pain Last Admin: 11/15/20 15:24 Dose: 0.2 mg Documented by: Dextrose/Lactated Ringer's (Dextrose 5%-Lactated Ringers) 1,000 mls @ 100 mls/hr IV ASDIRECTED [facility] Last Admin: 11/15/20 11:56 Dose: 100 mls/hr Documented by: Cefoxitin Sodium 2 gm/ Sodium (Chloride) 50 mls @ 100 mls/hr IV ONETIME ONE Stop: 11/15/20 12:59 Last Admin: 11/15/20 12:17 Dose: 100 mls/hr Documented by: Lactated Ringer's (Ringers, Lactated) Confirm Administered Dose 1,000 mls @ as directed .ROUTE .[facility] ONE Stop: 11/15/20 13:57 Cefoxitin Sodium 2 gm/ Sodium (Chloride) 50 mls @ 100 mls/hr IV Q6H [facility] Stop: 11/16/20 12:29 Last Admin: 11/16/20 13:29 Dose: 100 mls/hr Documented by: Potassium Chloride/Dextrose/Sod Cl (D5 Ns With 20 Meq Kcl) 1,000 mls @ 150 mls/hr IV ASDIRECTED [facility] Last Admin: 11/16/20 00:52 Dose: 150 mls/hr Documented by: Potassium Phosphate 15 mmol/ (Premix) 250 mls @ 85 mls/hr IV Q3H [facility] Stop: 11/15/20 23:57 Last Admin: 11/15/20 22:19 Dose: 85 mls/hr Documented by: Magnesium Sulfate (Magnesium Sulfate In Water 2 Gm/50 Ml) 2 gm in 50 mls @ 25 mls/hr IV Q6H [facility] Stop: 11/18/20 05:29 Last Admin: 11/18/20 04:00 Dose: 25 mls/hr Documented by: Potassium Phosphate 15 mmole/ (Dextrose/Sodium Chloride) 1,005 mls @ 60 mls/hr IV Q16H [facility] Stop: 11/17/20 16:55 Last Admin: 11/17/20 03:52 Dose: 60 mls/hr Documented by: Potassium Phosphate 15 mmol/ (Premix) 250 mls @ 85 mls/hr IV Q3H [facility] Stop: 11/16/20 21:57 Last Admin: 11/16/20 21:37 Dose: 85 mls/hr Documented by: Potassium Phosphate 15 mmole/ (Dextrose/Sodium Chloride) 1,005 mls @ 60 mls/hr IV Q16H [facility] Last Admin: 11/18/20 12:04 Dose: Not Given Documented by: Potassium Phosphate 15 mmol/ (Premix) 250 mls @ 85 mls/hr IV Q3H [facility] Stop: 11/17/20 18:57 Last Admin: 11/17/20 18:46 Dose: 85 mls/hr Documented by: Potassium Phosphate 15 mmol/ (Premix) 250 mls @ 85 mls/hr IV Q3H [facility] Stop: 11/18/20 17:57 Last Admin: 11/18/20 17:15 Dose: 85 mls/hr Documented by: Ketamine HCl (Ketamine 500 Mg/5 Ml Mdv) 29 mg IV ASDIRECTED [facility] Lidocaine/Epinephrine (Lidocaine 1% With Epinephrine 1:100,000 50 Ml Mdv) Confirm Administered Dose 50 ml .ROUTE .STK-MED ONE Stop: 11/15/20 13:12 Last Admin: 11/15/20 14:15 Dose: 20 ml Documented by: Lidocaine/Epinephrine (Lidocaine 1% With Epinephrine 1:100,000 50 Ml Mdv) Confirm Administered Dose 50 ml .ROUTE .STK-MED ONE Stop: 11/17/20 06:53 Last Admin: 11/17/20 07:47 Dose: 10 ml Documented by: Lorazepam (Lorazepam 0.5 Mg Tab) Confirm Administered Dose 0.5 mg .ROUTE .STK- MED ONE Stop: 11/18/20 01:26 Last Admin: 11/18/20 15:39 Dose: Not Given Documented by: Meropenem (Meropenem 500 Mg Sdv) Confirm Administered Dose 500 mg .ROUTE .STK- MED ONE Stop: 11/15/20 07:09 Last Admin: 11/15/20 13:38 Dose: 500 mg Documented by: Meropenem (Meropenem 500 Mg Sdv) Confirm Administered Dose 500 mg .ROUTE .STK- MED ONE Stop: 11/17/20 06:53 Last Admin: 11/17/20 07:56 Dose: 500 mg Documented by: Naloxone HCl (Naloxone 0.4 Mg/Ml Sdv) 0.04 mg IVPUSH Q3M PRN PRN Reason: Respiratory Depression Neostigmine Methylsulfate (Neostigmine Methylsulfate 1 Mg/Ml 5 Ml Syringe) Confirm Administered Dose 5 mg .ROUTE .STK-MED ONE Stop: 11/15/20 10:46 Ondansetron HCl (Ondansetron 4 Mg/2 Ml Sdv) Confirm Administered Dose 4 mg .ROUTE .STK-MED ONE Stop: 11/15/20 10:46 Ondansetron HCl (Ondansetron 4 Mg/2 Ml Sdv) 4 mg IVPUSH Q6H PRN PRN Reason: Nausea/Vomiting Propofol (Propofol 200 Mg/20 Ml Sdv) Confirm Administered Dose 200 mg .ROUTE .ST [employer]-MED ONE Stop: 11/15/20 10:46 Propofol (Propofol 200 Mg/20 Ml Sdv) Confirm Administered Dose 200 mg .ROUTE .STK-MED ONE Stop: 11/17/20 07:30 Propranolol HCl (Propranolol 80 Mg Cap.Er) 80 mg PO DAILY [facility] Stop: 11/16/20 09:30 Last Admin: 11/16/20 08:05 Dose: 80 mg Documented by: Rocuronium [place] (Rocuronium 50 Mg/5 Ml Vial) Confirm Administered Dose 50 mg .ROUTE .STK-MED ONE Stop: 11/15/20 10:46 Scopolamine (Scopolamine 1.5 Mg Transdermal Patch) 1.5 mg TOP Q72H [facility] Stop: 11/17/20 10:00 Last Admin: 11/15/20 11:56 Dose: Not Given Documented by: Succinylcholine Chloride (Succinylcholine 200 Mg/10 Ml Mdv) Confirm Administered Dose 200 mg .ROUTE .STK-MED ONE Stop: 11/15/20 10:46 - Exam Quality Assessment: No: Supplemental Oxygen General: Alert, Oriented, Cooperative, No Acute Distress Lungs: Normal Respiratory Effort GI/Abdominal Exam: Soft, No Distention Extremities: No Pedal Edema Neurological: Other (parkinson tremor of hands and feet ) Sepsis Event Note - Evaluation Sepsis Screening Result: No Definite Risk - Focused Exam Vital Signs: Vital Signs Temp Pulse Resp BP Pulse Ox 11/19/20 07:24 36.1 C 65 18 141/75 H 94 L 11/19/20 02:39 36.2 C 59 L 16 137/57 L 93 L Consult PN Assessment/Plan Procedures: Procedures ANTINUCLEAR ANTIBODIES (11/02/20) ASSAY OF LACTIC ACID (11/02/20) ASSAY OF LIPASE (11/02/20) ASSAY OF MAGNESIUM (11/02/20) ASSAY OF NATRIURETIC PEPTIDE (11/02/20) ASSAY OF PHOSPHORUS (11/02/20) BLOOD SMEAR INTERPRETATION (11/02/20) BREAST TOMOSYNTHESIS BI (04/29/20) C-REACTIVE PROTEIN (11/02/20) COMP SCREEN MAMMOGRAM ADD-ON (01/27/16) COMPLETE CBC AUTOMATED (11/02/20) COMPLETE CBC W/AUTO DIFF WBC (11/11/20) COMPREHEN METABOLIC PANEL (11/11/20) CT ABD & PELV W/CONTRAST (11/02/20) CT ANGIOGRAPHY NECK (01/04/18) CT HEAD/BRAIN W/O DYE (12/25/17) EMERGENCY DEPT VISIT (11/11/20) EMERGENCY DEPT VISIT (11/02/20) EMERGENCY DEPT VISIT (12/25/17) METABOLIC PANEL TOTAL CA (11/11/20) NEUROMUSCULAR REEDUCATION (10/22/20) PT EVAL LOW COMPLEX 20 MIN (09/10/20) RBC SED RATE NONAUTOMATED (11/02/20) ROUTINE VENIPUNCTURE (11/11/20) SCR MAMMO BI INCL CAD (04/29/20) THER/PROPH/DIAG INJ IV PUSH (11/11/20) THERAPEUTIC EXERCISES (09/17/20) TTE W/DOPPLER COMPLETE (01/10/18) URINALYSIS AUTO W/SCOPE (11/11/20) X-RAY EXAM ABDOMEN 2 VIEWS (11/02/20) X-RAY EXAM ABDOMEN 3+ VIEWS (11/02/20) X-RAY EXAM CHEST 1 VIEW (11/02/20) Problem List Initiated/Reviewed/Updated: Yes My Orders Last 24 Hours: My Active Orders 11/18/20 16:00 Calcium Carbonate [Tums] 1,000 mg PO QID 11/19/20 12:00 Carbidopa/Levodopa [Sinemet 25-100 mg] 1 tab PO ONETIME ONE 11/19/20 21:00 Carbidopa/Levodopa [Sinemet 25-100 mg] 2 tab PO BEDTIME Plan: ASSESSMENT AND RECOMMENDATIONS - Hypocalcemia-calcium level was normal on arrival and is mildly reduced at this time as is her ionized calcium. Symptoms did improve yesterday but tremors seem to be worse again this morning. Calcium level improved but still low normal. -Agree with calcium carbonate per surgery orders -Repeat calcium in the morning -Anticipate her level will improve with supplementation History of ulcerative colitis and previous ostomy formation-remote history of initial surgery. Recent revision because of persistent obstruction. Clinically doing well postoperatively. -Postoperative care as per surgical team Parkinson's disease-increase in symptoms again overnight. Anticipate her symptoms are worsened with recovery from recent surgery and also hypocalcemia. I would anticipate they will return to baseline over the next few days but she would benefit from increase in her Sinemet until that time. -Extra dose of Sinemet at lunchtime -2 tablets of Sinemet at bedtime -Continue home medications -Hypocalcemia management as above Miguel Angel Kaye MD
[2020-11-19] MEDS ORDERED: Carbidopa/Levodopa 25-100 MG Tab PO ONE (12:00)
[2020-11-19] MEDS ORDERED: Carbidopa/Levodopa 25-100 MG Tab PO SCH (21:00)
[2020-11-19] MEDS: Aspirin 325 MG Tab.EC PO SCH (21:36)
[2020-11-19] MEDS: atorvaSTATin 20 MG Tab PO SCH (21:36)
[2020-11-20] MEDS: Calcium Carbonate 500 MG Tab.Chew PO SCH (05:43)
[2020-11-20] MEDS: Acetaminophen 325 MG Tab PO SCH (05:44)
[2020-11-20] MEDS: Propranolol 80 MG Cap.ER PO SCH (07:11)
[2020-11-20] MEDS: Carbidopa/Levodopa 25-100 MG Tab PO SCH (07:11)
[2020-11-20] MEDS ORDERED: Potassium Chloride 20 MEQ Tab.ER PO SCH (09:00)
[2020-11-20] MEDS ORDERED: Furosemide 20 MG Tab PO SCH (09:00)
[2020-11-20] MEDS ORDERED: Magnesium Oxide 400 MG Tab PO SCH (09:00)
--- NOTE | 2020-11-20 11:41 | DISCH ---
ADMISSION DIAGNOSES: 1. 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 2. Parkinson's disease. 3. History of transient ischemic attack. 4. History of ileostomy greater than 20 years. DISCHARGE DIAGNOSES: 1. Exploratory laparotomy with: a. Takedown of previous ileostomy. b. Formation of near end ileostomy. c. Repair of incarcerated parastomal hernia with mesh. d. Repair of separate umbilical incisional hernia with mesh x2. e. Placement of Interceed mesh. POSTOPERATIVE DIAGNOSES: 1. 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 2. Separate periumbilical non incarcerated incisional hernia. Date of procedure: 11/15/2020. Surgeon: Pete Andrews MD. 3. Delayed primary closure of open abdominal incision on 11/17/2020. Surgeon: Pete Andrews MD. 4. Exacerbation of Parkinson's disease with increased tremors. HISTORY: Tish is a pleasant 75-year-old female with a chronically obstructed end ileostomy with incarcerated parastomal hernia. After preoperative evaluation and discussion of possible risks and possible complications, she wished to proceed with surgical procedure. HOSPITAL COURSE: Tish had her surgery on 11/15/2020. She had no operative complications. On 11/17/2020, she had delayed primary closure. On 11/17/2020, she gradually had increasing tremors from her Parkinson's and her calcium was low. Calcium was replaced and she was given the propranolol and Sinemet for her Parkinson's earlier in the day. This did help relieve some of her symptoms for a short period of time. She did have a consult from hospitalist, Dr. Miguel Angel Kaye. Her Sinemet and propranolol dose was increased. She continued to have replacement of her calcium and her tremors did improve she states about 50%. Ileostomy had good output. Appetite good. Vital signs remained stable. She was able to be discharged to home on 11/20/2020. PHYSICAL EXAMINATION: GENERAL: Tish Finnegan is a pleasant 75-year-old female. VITAL SIGNS: Height 5 feet 4.96 inches, weight 125 pounds. TPR is 97.2, 66, 16, blood pressure 160/84. HEENT: Negative. NECK: Supple. HEART: Regular rate and rhythm. LUNGS: Clear. ABDOMEN: Dressings dry and intact. Abdominal binder is on. Aryan intact. EXTREMITIES: Without peripheral edema. She does have involuntary tremors in upper and lower extremities. DISPOSITION: Discharged to home. CONDITION: Stable and improving. FOLLOWUP APPOINTMENT: With Becky Ramos PA-C on 11/25/2020 at 10 a.m. Prior to that appointment, she is to have a CBC, CMP, mag, phos, and BNP. HOME MEDICATIONS: 1. Lasix 20 mg p.o. daily for 5 days. 2. Potassium chloride 20 mEq p.o. daily #5. 3. Magnesium oxide 400 mg p.o. daily #30. 4. Tums 1000 mg p.o. b.i.d. for 1 month. 5. To increase carbidopa-levodopa/Sinemet 25/100 mg to 3 times daily at 0800, 1200, 1600, and to take 2 tablets at bedtime. 6. Fosamax 70 mg p.o. weekly. 7. Lipitor 20 mg p.o. bedtime. 8. Inderal 80 mg [place] p.o. daily. 9. Calcium carbonate-vitamin D 1 tablet p.o. b.i.d. 10.Ecotrin/aspirin 325 mg at bedtime. 11.Tylenol 650 mg p.o. q.6 hours. DIET: Regular diet as tolerated. Drink 8 to 10 glasses of water. ACTIVITY: No lifting greater than 10 pounds for 6 weeks. Other activity: Walk daily inside your home. DISCHARGE INSTRUCTIONS: Driving: Do not drive for 1 week. Shower/bathing: May shower. Keep operative site clean and dry. Notify provider if any fever, increased pain, swelling, redness, drainage, nausea, or vomiting. Use incentive spirometer 10 times every hour while awake. /[id number]
--- NOTE | 2020-11-26 06:54 | OR ---
DATE OF PROCEDURE: 11/17/2020 SURGEON: Pete Andrews MD PREOPERATIVE DIAGNOSIS: Open abdominal incision. POSTOPERATIVE DIAGNOSIS: Open abdominal incision. PROCEDURE: Delayed primary closure of open abdominal incision. ANESTHESIA: Local plus IV sedation. INDICATION FOR PROCEDURE: This is a 75-year-old status post takedown and replacement of the ileostomy. At the time of the procedure, it was felt the skin and subcutaneous tissue would be high risk for wound infection and therefore packed open for a planned delayed primary closure at this time. Potential risks including bleeding and infection were discussed and the patient wishes to proceed. DESCRIPTION OF PROCEDURE: The patient was taken to the operating room and placed in a supine position with the head raised up roughly 30 degrees. The operative dressing was taken down and the wound inspected and found to be clean. The ostomy was also inspected through the clear bag and found to be quite good at this point and producing some thin green stool consistent with an ileostomy. The abdomen was then prepped and draped, anesthetized with 1% lidocaine mixed with Marcaine and the incision closed with a layer of 3-0 Vicryl stitch deep and adonay for the skin. Bilateral transverse abdominis plane blocks were also then placed with ultrasound guidance and patient taken to the recovery room in satisfactory condition. There were no evident complications. Pete Andrews MD /[id number]
--- NOTE | 2020-11-26 13:43 | PN ---
DATE OF SERVICE: 11/17/2020 The patient has been afebrile with stable vital signs. Her Parkinson's seems to be a little bit worse in terms of moderate shaking at this point. We will give her Sinemet and Inderal right away prior to going down for a closure in an hour or so. Otherwise, calcium appears to be somewhat low and potassium phosphate has come up, but still probably we are behind the ball in terms of replacement there. We will metal flooring installer her some Tums periodically through the day. We will check her calcium including an ionized calcium tomorrow. Otherwise, her ostomy is working and will shortly undergo the delayed primary closure and abdominal incision later this morning. With her ostomy functioning quite well and this being ileostomy, we will discontinue the bowel stimulation, switch over to oral pain medicine. She might be ready for discharge home tomorrow. Pete Andrews MD /[id number]
--- NOTE | 2020-11-26 14:50 | PN ---
DATE OF SERVICE: 11/16/2020 The patient is postop takedown and reconstruction of the ileostomy yesterday along with repair of incisional hernia. Clinically overnight, she has done well. The ostomy output has not restarted at this point. Urine output has been satisfactory. We will back down on the IV rate. Her phosphate and magnesium are quite low and these will be supplemented today. Otherwise, we will plan to proceed with a delayed primary closure of abdominal incision tomorrow and begin some bowel stimulation orally today. Pete Andrews MD /[id number]
--- NOTE | 2020-12-02 12:19 | OR ---
DATE OF PROCEDURE: 11/15/2020 SURGEON: Pete Andrews MD PREOPERATIVE DIAGNOSIS: High-grade partial obstruction of ileostomy. POSTOPERATIVE DIAGNOSES: 1. 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 2. Separate periumbilical non-incarcerated incisional hernia. OPERATIVE PROCEDURES: Exploratory laparotomy with: 1. Resection of distal small bowel and pre-existing ileostomy (11144). 2. Formation of new end ileostomy (02073). 3. Repair of incarcerated parastomal hernia with mesh (24766, 74469). 4. Repair of separate periumbilical incisional hernia (86068). 5. The patient later received mesh x2 to limit recurrent adhesion formation between pelvic, abdominal wall, and underlying viscera (99916). ANESTHESIA: General. AVIONICS ELECTRONICS TECHNICIAN: Becky Ramos PA-C INDICATIONS FOR PROCEDURE: This 75-year-old with end ileostomy created for surgical treatment of Crohn's disease somewhere in the range of 25 , presenting with ongoing high-grade partial obstruction of the ileostomy. This appeared to be related to development of a para-ileostomy hernia per CT scan. Plan is to proceed with exploratory laparotomy and takedown of the pre-existing ileostomy and likely formation of a new ileostomy there in the same location or in the left lower quadrant with recurrent ileostomy in the right lower quadrant. The potential risks including bleeding, infection, injury to underlying viscera, leaks from any GI tract anastomoses, problems with recurrence of the hernia over time were all reviewed, and the patient wishes to proceed. DETAILS OF PROCEDURE: The patient was taken to the operating room, placed in a supine position. After general endotracheal anesthesia was induced, a Ricci catheter was inserted, and the abdomen was prepped and draped. Prior to prepping, the pre-existing ileostomy was sutured off with a pursestring stitch of 2-0 Prolene stitch to avoid intraoperative spillage of GI content. A previous midline incision was then reused and carried down through the skin and subcutaneous tissue in the area just at and slightly above the umbilicus, where the patient was noted to have an incisional hernia. This was dissected free and the peritoneal cavity entered. Relatively little in the way of adhesions were identified. The area of the ileostomy was then inspected and as expected there was noted to have some prolapse of some of the distal small bowel and mesentery alongside of the main course of the ileostomy consistent with the preoperative CT findings of parastomal hernia. With the aid of some blunt dissection and cautery dissection, the hernia was then reduced. At that point, the decision was then made to resect the distal small bowel. Externally, the previous ileostomy was divided away from the skin attachments maintaining an immediate plane of dissection on the edge of the ileostomy so as not to enlarge the skin opening. This was carried down through the skin and subcutaneous tissue down the level of the fascia and into the area of the hernia sac was entered and the remaining attachments of the ileostomy to the abdominal wall were taken down. The distal small bowel was resected, that provided more satisfactory segment of bowel formation of an ileoileostomy. This was divided with the RICARDO stapler at the underlying mesentery to avoid devascularization of the new end of the small bowel. The new limb of the small bowel was then brought up with Siomara clamp through the pre- existing ileostomy site, and this fit fairly well appeared to be remaining satisfactory. The widened fascia was then closed, i.e., the hernia site at the ileostomy level, closed with a running #1 Vicryl stitch, this was then reinforced with a Phasix ST mesh. This was cut such that there is a keyhole around where the ileum came through and the open end was oriented so as not to create any disturbance of the flow through the mesentery. This was sutured then to the abdominal wall at the point where the mesh had been divided with running #1 Vicryl stitch as well and the mesh was then fixed circumferentially with absorbable tacking screws. The mesh was oriented such that the polypropylene side of the mesh faced the abdominal wall. At this point, the ileostomy appeared to be satisfactorily located and the midline fascia was then approximated with #2 Vicryl stitch. After 2 Interceed meshes have then placed underneath the main incision and underneath the ileoileostomy as well to limit recurrent adhesion formation between those surfaces and the underlying viscera. The midline fascia was then approximated with #2 Vicryl stitch which was also used to close the midline incisional hernia. The skin and subcutaneous tissue were felt to be at high risk for wound infection if they were closed and therefore these were packed open for a planned delayed primary closure. Prior to closure, bilateral transversus abdominis plane blocks had been placed and the incision itself was anesthetized with 1% lidocaine mixed with Marcaine. Following closure of the midline fascia, the ileostomy was matured with a series of interrupted running 4-0 Vicryl sutures after opening the ileostomy staple line with electrocautery. appliance was applied and the patient was taken to the recovery room in satisfactory condition. Physician food and beverage assistant manager, Becky Ramos, played an essential role in assisting in this case helping to position the patient, retract structures as needed, as well as suturing and cutting sutures when indicated. Her presence improved the patient's safety and decreased operative time. Pete Andrews MD /[id number]
== END 2020-11-20 10:55 | disposition home or self-care (01) | DRG 330 ==
LOC: JP.MS 11:04 → UNDOADMIN 11:04 → JP.SDS 11:04 → JP.MS 14:50 → EDSTATUS 18:15
PROVIDERS: ADMIT Surgery; ATTEND Surgery
PROC: 0D1B0Z4 Bypass Ileum to Cutaneous, Open Approach (ICD-10-PCS; principal; 2020-11-15)
PROC: 0DBB0ZZ Excision of Ileum, Open Approach (ICD-10-PCS; 2020-11-15)
PROC: 0WUF0JZ Supplement Abdominal Wall with Synthetic Substitute, Open Approach (ICD-10-PCS; 2020-11-15)
PROC: 0WUF0JZ Supplement Abdominal Wall with Synthetic Substitute, Open Approach (ICD-10-PCS; 2020-11-15)
PROC: 3E0M05Z Introduction of Adhesion Barrier into Peritoneal Cavity, Open Approach (ICD-10-PCS; 2020-11-15)
PROC: 0WQF0ZZ Repair Abdominal Wall, Open Approach (ICD-10-PCS; 2020-11-17)
DX: K94.19 Other complications of enterostomy (principal); K43.3 Parastomal hernia with obstruction, without gangrene; K43.2 Incisional hernia without obstruction or gangrene; G20 Parkinson's disease; E83.51 Hypocalcemia; E78.00 Pure hypercholesterolemia, unspecified; Z86.73 Personal history of transient ischemic attack (TIA), and cerebral infarction without residual deficits; Z79.82 Long term (current) use of aspirin; Z79.899 Other long term (current) drug therapy
CPT/HCPCS: 36415; 80048; 80053; 82330; 83735; 83880; 84100; 85025; 85027; 88302; 88307; 94762; 97116-GP; 97162-GP; 97530-GP; 99222; 99232; A9270-GY; C1781; J0171; J0330; J0694; J1100; J1170; J1940; J2185; J2405; J2704; J2710; J2795; J3010; J3475; J3480; J3490; J7042; J7120; J7121

== ENCOUNTER 2020-12-03 15:55 | Emergency (ER) | payer MEDICARE, BC ==
--- NOTE | 2020-12-03 18:11 | EDM.PDOC ---
ED HPI GENERAL MEDICAL PROBLEM - General Chief Complaint: Cardiovascular Problem Stated Complaint: LOW BLOOD PRESSURE Time Seen by Provider: 12/03/20 18:00 Source of Information: Reports: Patient, Family, Old Records, RN History Limitations: Reports: No Limitations - History of Present Illness INITIAL COMMENTS - FREE TEXT/NARRATIVE: 75 yo female was seen in the neuro clinic in [place] today for her Parkinson's. They felt her BP was dangerously low so AFTER the appt they told her to go to the ER. She and her decided instead to return home to [place] and presented to our ER. Upon arrival and during her ER visit her BP is normal. Onset: Gradual Duration: Day(s):, Waxing/Waning Location: Reports: Generalized Quality: Reports: Other (no pain) Severity: Mild Improves with: Reports: Other (unsure) Worsens with: Reports: Other (unsure) Context: Reports: Other (See HPI) Associated Symptoms: Reports: No Other Symptoms, Malaise Treatments DOT NET ARCHITECT: Reports: Other (see below) (none) - Related Data Allergies Allergy/AdvReac Type Severity Reaction Status Date / Time No Known Allergies Allergy Verified 12/03/20 16:13 Home Meds: Home Meds Carbidopa/Levodopa [Carbidopa-Levodopa 25-100] 2 tab PO TID@0800,1200,1600 11/02/20 [History] Calcium Carbonate/Vitamin D3 [Calcium Carbonate/Vitamin D 600 MG-200 Unit] 2 tab PO DAILY 11/14/20 [History] Acetaminophen [Tylenol] 650 mg PO Q6H tablet 11/20/20 [Rx] Aspirin [Ecotrin EC] 325 mg PO BEDTIME tab.ec 11/20/20 [Rx] atorvaSTATin [Lipitor] 20 mg PO BEDTIME tablet 11/20/20 [Rx] Alendronate Sodium [Fosamax] 70 mg PO WEEKLY 12/03/20 [History] Propranolol [Inderal LA] 40 mg PO ASDIRECTED 12/03/20 [History] Past Medical History HEENT History: Reports: Impaired Vision Cardiovascular History: Reports: High Cholesterol Respiratory History: Reports: None Gastrointestinal History: Reports: Inflammatory Bowel Disease Genitourinary History: Reports: None FINANCIAL SERVICES ASSOCIATE History: Reports: None Musculoskeletal History: Reports: None Neurological History: Reports: Parkinson's, TIA Psychiatric History: Reports: None Endocrine/Metabolic History: Reports: None Hematologic History: Reports: None Oncologic (Cancer) History: Reports: None Dermatologic History: Reports: None - Infectious Disease History Infectious Disease History: Reports: Chicken Pox, Measles, Mumps - Past Surgical History Head Surgeries/Procedures: Reports: None HEENT Surgical History: Reports: None Cardiovascular Surgical History: Reports: None Respiratory Surgical History: Reports: None GI Surgical History: Reports: Other (See Below) Other GI Surgeries/Procedures: illiostomy 1992 Female Surgical History: Reports: Tubal Ligation Neurological Surgical History: Reports: None Musculoskeletal Surgical History: Reports: None Oncologic Surgical History: Reports: None Dermatological Surgical History: Reports: None Social & Family History - Family History Family Medical History: No Pertinent Family History - Tobacco Use Tobacco Use Status *Q: Never Tobacco User Second Hand Smoke Exposure: No - Caffeine Use Caffeine Use: Reports: None - Recreational Drug Use Recreational Drug Use: No ED ROS GENERAL - Review of Systems Review Of Systems: See Below Constitutional: Reports: No Symptoms HEENT: Reports: No Symptoms Cardiovascular: Reports: Lightheadedness (at times, not now) GI/Abdominal: Reports: No Symptoms : Reports: No Symptoms Musculoskeletal: Reports: No Symptoms Skin: Reports: No Symptoms Neurological: Reports: Other (has Parkinson's) Psychiatric: Reports: Anxiety ED EXAM, GENERAL - Physical Exam Exam: See Below Exam Limited By: No Limitations General Appearance: Alert, WD/WN, No Apparent Distress Eye Exam: Bilateral Eye: Normal Inspection Ears: Normal External Exam, Normal Canal, Hearing Grossly Normal Ear Exam: Bilateral Ear: Auricle Normal, Canal Normal, TM normal Nose: Normal Inspection, No Blood Throat/Mouth: Normal Inspection, Normal Lips, Normal Oropharynx, Normal Voice, No Airway Compromise Head: Atraumatic, Normocephalic Neck: Normal Inspection Respiratory/Chest: No Respiratory Distress, Lungs Clear, Normal Breath Sounds, No Accessory Muscle Use Cardiovascular: Regular Rate, Rhythm, No Edema Peripheral Pulses: 4+: Dorsalis Pedis (R) GI/Abdominal: Normal Bowel Sounds, Soft, No Distention Back Exam: Normal Inspection. No: CVA Tenderness (R), CVA Tenderness (L) Extremities: Normal Inspection, Normal Range of Motion, Non-Tender, No Pedal Edema Neurological: Alert, Oriented, CN II-XII Intact, Normal Cognition, No Motor/Sensory Deficits, Other (Parkinsonian tremor) Psychiatric: Normal Affect, Normal Mood, Anxious Skin Exam: Warm, Dry, Intact, Normal Color, No Rash Course - Vital Signs Last Recorded V/S: Last Vital Signs Temp 35.7 C L 12/03/20 16:16 Pulse 69 12/03/20 17:51 Resp 16 12/03/20 16:16 BP 147/77 H 12/03/20 17:51 Pulse Ox 98 12/03/20 17:51 Orthostatic Blood Pressure [ 147/78 Standing] Orthostatic Blood Pressure [ 156/78 Sitting] Orthostatic Blood Pressure [ 147/71 Supine] Departure - Departure Time of Disposition: 18:13 Disposition: Home, Self-Care 01 Condition: Good Clinical Impression: Blood pressure alteration Referrals: Mallory Richardson MD [Primary Care Provider] - Additional Instructions: Stay in touch with Dr. Richardson regarding your BP. Return as needed. Sepsis Event Note (ED) - Evaluation Sepsis Screening Result: No Definite Risk - Focused Exam Vital Signs: Vital Signs Temp Pulse Resp BP Pulse Ox 12/03/20 17:51 69 147/77 H 98 12/03/20 17:29 74 161/82 H 99 12/03/20 16:51 71 155/72 H 99 12/03/20 16:16 35.7 C L 72 16 142/63 H 97 12/03/20 16:09 35.7 C L 72 16 142/63 H 97
== END 2020-12-03 18:23 | disposition home or self-care (01) ==
LOC: JP.ED 15:55
DX: I99.8 Other disorder of circulatory system (principal); G20 Parkinson's disease; E78.00 Pure hypercholesterolemia, unspecified; Z86.73 Personal history of transient ischemic attack (TIA), and cerebral infarction without residual deficits; Z79.82 Long term (current) use of aspirin; Z79.899 Other long term (current) drug therapy
CPT/HCPCS: 99284

== ENCOUNTER 2021-12-11 07:24 | Day surgery (SDC) | payer MEDICARE, BC ==
[2021-12-11] MEDS: Sodium Chloride 0.9% 10 ML Syringe FLUSH PRN (08:22)
== END 2021-12-11 09:35 | disposition home or self-care (01) ==
LOC: JP.SDS 07:24
PROVIDERS: ATTEND Ophthalmology
DX: H25.11 Age-related nuclear cataract, right eye (principal); G20 Parkinson's disease
CPT/HCPCS: J3490; V2632

== ENCOUNTER 2022-01-08 06:28 | Day surgery (SDC) | payer MEDICARE, BC ==
[2022-01-08] MEDS ORDERED: Sodium Chloride 0.9% 10 ML Syringe FLUSH ONE (07:00)
== END 2022-01-08 08:06 | disposition home or self-care (01) ==
LOC: JP.SDS 06:28
PROVIDERS: ATTEND Ophthalmology
DX: H26.9 Unspecified cataract (principal)

== ENCOUNTER 2023-04-20 05:21 | Inpatient (IN) | payer MEDICARE, BC ==
[2023-04-20 05:52] LABS: HEMATOCRIT 37.1 % (34.3-46.0); HEMOGLOBIN 12.5 g/dL (11.2-15.5); MEAN CORPUSCULAR HEMOGLOBIN 30.8 pg (31.6-35.5); MEAN CORPUSCULAR HGB CONC 33.7 g/dL (31.6-35.5); MEAN CORPUSCULAR VOLUME 91.4 fL (81.4-99.0); RED BLOOD CELL COUNT 4.06 M/uL (3.77-5.24); WHITE BLOOD CELL COUNT,WBC 4.5 K/uL (3.2-11.0)
[2023-04-20 06:19] LABS: A/G RATIO 1.3 (1.2-2.2); ALANINE AMINOTRANSFERASE,ALT 9 U/L (12-78); ALBUMIN 3.7 g/dL (3.4-5.0); ALKALINE PHOSPHATASE 86 U/L (46-116); ANION GAP 9.1 mmol/L (5.0-14.0); ASPARTATE AMNIOTRANSFERASE,AST 12 U/L (15-37); BILIRUBIN TOTAL 0.7 mg/dL (0.2-1.0); BLOOD UREA NITROGEN,BUN 15 mg/dL (7-18); CALCIUM 8.7 mg/dL (8.5-10.1); CARBON DIOXIDE,CO2 28 mmol/L (21-32); CHLORIDE,CL 103 mmol/L (100-108); CREATININE 0.9 mg/dL (0.6-1.0); EST CRCL DRUG DOSING (CG) 48.23 mL/min; ESTIMATED GFR 65 mL/min (>60); GLUCOSE RANDOM 103 mg/dL (74-106); MAGNESIUM 1.9 mg/dL (1.8-2.4); PHOSPHORUS 3.6 mg/dL (2.5-4.9); POTASSIUM,K 4.2 mmol/L (3.6-5.2); PRO B-TYPE NATRIUR PEPT,BNPPRO 607 pg/mL (5-450); PROTEIN TOTAL,TP 6.6 g/dL (6.4-8.2); SODIUM,NA 140 mmol/L (140-148)
[2023-04-20] MEDS ORDERED: Dextrose 5%-Lactated Ringers 1,000 ML IV SCH (06:30)
[2023-04-20] MEDS ORDERED: Lidocaine 1% with EPINEPHrine 1:100,000 50 ML MDV ONE (06:41)
[2023-04-20] MEDS ORDERED: Bupivacaine 0.5% 50 ML MDV ONE (06:41)
[2023-04-20] MEDS ORDERED: Meropenem 500 MG SDV ONE (06:41)
[2023-04-20] MEDS ORDERED: Neostigmine Methylsulfate 1 MG/ML 5 ML Syringe ONE (06:51)
[2023-04-20] MEDS ORDERED: Dexamethasone 4 MG/ML SDV ONE (06:51)
[2023-04-20] MEDS ORDERED: Ondansetron 4 MG/2 ML SDV ONE (06:51)
[2023-04-20] MEDS ORDERED: Propofol 200 MG/20 ML SDV ONE (06:51)
[2023-04-20] MEDS ORDERED: Glycopyrrolate 0.2 MG/ML 5 ML MDV ONE (06:51)
[2023-04-20] MEDS ORDERED: Rocuronium 50 MG/5 ML Vial ONE (06:51)
[2023-04-20] MEDS ORDERED: fentaNYL 250 MCG/5 ML SDV ONE (06:52)
[2023-04-20] MEDS ORDERED: cefOXitin 2 GM in Sodium Chloride 0.9% 50 ML IV ONE (07:15)
[2023-04-20] MEDS ORDERED: diphenhydrAMINE 25 MG Cap PO PRN (07:24)
[2023-04-20] MEDS ORDERED: Naloxone 0.4 MG/ML SDV IVPUSH PRN (07:24)
[2023-04-20] MEDS ORDERED: diphenhydrAMINE 50 MG/ML SDV IVPUSH PRN ×2 (07:24→11:00)
[2023-04-20] MEDS ORDERED: Ondansetron 4 MG/2 ML SDV IVPUSH PRN ×2 (07:24→11:00)
[2023-04-20] MEDS ORDERED: HYDROmorphone/Normal Saline 6 MG/30 ML PCA Vial IV PRN (07:24)
[2023-04-20] MEDS ORDERED: Ketamine 18 MG in Sodium Chloride 0.9% 19.82 ML IV SCH (07:30)
[2023-04-20] MEDS ORDERED: Ropivacaine 30 ML, dexAMETHasone 8 MG, EPINEPHrine 0.4 MG, Sodium Chloride 0.9% 47.6 ML NERVRT SCH ×4 (07:30)
[2023-04-20] MEDS ORDERED: Ketamine 500 MG/5 ML MDV IV SCH (07:30)
[2023-04-20] MEDS ORDERED: Naloxone 0.4 MG/ML SDV IV PRN (08:00)
[2023-04-20] MEDS ORDERED: Linezolid 600 MG/300 ML Premix Bag IRR ONE (08:25)
[2023-04-20] MEDS ORDERED: Cyclobenzaprine 10 MG Tab PO PRN (10:54)
[2023-04-20] MEDS ORDERED: Metoclopramide 10 MG/2 ML SDV IVPUSH PRN (11:00)
[2023-04-20] MEDS ORDERED: hydrOXYzine HCL 100 MG/2 ML SDV IM PRN (11:00)
[2023-04-20] MEDS ORDERED: Acetaminophen 500 MG Tab PO PRN (11:00)
[2023-04-20] MEDS ORDERED: Labetalol 20 MG/4 ML Syringe IVPUSH PRN (11:00)
[2023-04-20] MEDS ORDERED: Carbidopa/Levodopa 25-100 MG Tab PO SCH (11:00)
[2023-04-20] MEDS: Dextrose 5%-Lactated Ringers 1,000 ML IV SCH (11:31)
[2023-04-20] MEDS: Carbidopa/Levodopa 25-100 MG Tab PO SCH ×2 (11:39→16:14)
[2023-04-20] MEDS ORDERED: Pantoprazole 40 MG Vial IVPUSH SCH (14:00)
[2023-04-20] MEDS: cefOXitin 2 GM in Sodium Chloride 0.9% 50 ML IV SCH ×2 (14:30→19:36)
[2023-04-20] MEDS: Acetaminophen 500 MG Tab PO SCH ×2 (15:34→23:43)
[2023-04-20] MEDS: MVI, Adult with Vitamin K 10 ML, Thiamine 200 MG, Zinc/Copper/Manganese/Selenium 1 ML i... IV SCH ×4 (15:36)
[2023-04-20] MEDS: PRAMIPEXOLE 0.375 MG PO SCH (16:15)
[2023-04-20] MEDS: atorvaSTATin 20 MG Tab PO SCH (20:59)
[2023-04-21] MEDS: Dextrose 5%-Lactated Ringers 1,000 ML IV SCH (00:25)
[2023-04-21] MEDS: cefOXitin 2 GM in Sodium Chloride 0.9% 50 ML IV SCH ×4 (02:21→19:27)
[2023-04-21] MEDS: Carbidopa/Levodopa 25-100 MG Tab PO SCH ×3 (07:06→15:13)
[2023-04-21] MEDS: Acetaminophen 500 MG Tab PO SCH ×2 (07:57→15:13)
[2023-04-21] MEDS ORDERED: HYDROmorphone 2 MG Tab PO PRN (08:11)
[2023-04-21] MEDS ORDERED: Dextrose 5%-Lactated Ringers 1,000 ML IV SCH (08:15)
[2023-04-21] MEDS: Aspirin 325 MG Tab.EC PO SCH (08:38)
[2023-04-21] MEDS: Celecoxib 200 MG Cap PO SCH ×2 (08:38→20:32)
[2023-04-21] MEDS: Bisacodyl 5 MG Tab PO SCH ×2 (09:13→20:33)
[2023-04-21] MEDS: Docusate Sodium 100 MG Cap PO SCH ×2 (09:14→20:33)
[2023-04-21] MEDS: Pantoprazole 40 MG Tab.CR PO SCH (11:03)
[2023-04-21] MEDS: PRAMIPEXOLE 0.375 MG PO SCH (15:14)
[2023-04-21] MEDS: MVI, Adult with Vitamin K 10 ML, Thiamine 200 MG, Zinc/Copper/Manganese/Selenium 1 ML i... IV SCH ×4 (15:14)
[2023-04-21] MEDS: atorvaSTATin 20 MG Tab PO SCH (20:32)
[2023-04-22] MEDS: Acetaminophen 500 MG Tab PO SCH ×2 (00:39→07:21)
[2023-04-22] MEDS: cefOXitin 2 GM in Sodium Chloride 0.9% 50 ML IV SCH ×2 (02:19→08:11)
[2023-04-22] MEDS: Carbidopa/Levodopa 25-100 MG Tab PO SCH (07:20)
[2023-04-22] MEDS: Pantoprazole 40 MG Tab.CR PO SCH (07:20)
[2023-04-22] MEDS: Bisacodyl 5 MG Tab PO SCH (08:12)
[2023-04-22] MEDS: Docusate Sodium 100 MG Cap PO SCH (08:12)
[2023-04-22] MEDS: Celecoxib 200 MG Cap PO SCH (08:12)
[2023-04-22] MEDS: Aspirin 325 MG Tab.EC PO SCH (08:13)
== END 2023-04-22 09:45 | disposition home or self-care (01) | DRG 354 ==
LOC: JP.SDS 05:21 → JP.MS 09:40
PROVIDERS: ADMIT Surgery; ATTEND Physician Assistant Medical
PROC: 0WUF0JZ Supplement Abdominal Wall with Synthetic Substitute, Open Approach (ICD-10-PCS; principal; 2023-04-20)
DX: K44.0 Diaphragmatic hernia with obstruction, without gangrene (principal); K51.90 Ulcerative colitis, unspecified, without complications; G20.A1 Parkinson's disease without dyskinesia, without mention of fluctuations; E78.5 Hyperlipidemia, unspecified; M81.0 Age-related osteoporosis without current pathological fracture; F41.9 Anxiety disorder, unspecified; Z98.890 Other specified postprocedural states; Z90.49 Acquired absence of other specified parts of digestive tract; Z98.42 Cataract extraction status, left eye; Z93.3 Colostomy status; Z86.73 Personal history of transient ischemic attack (TIA), and cerebral infarction without residual deficits
CPT/HCPCS: 36415; 80053; 83735; 83880; 84100; 85027; 88302; A9270-GY; C1713; C1763; C1781; C9113; J0131; J0171; J0694; J1100; J1170; J2020; J2185; J2405; J2704; J2710; J2795; J3010; J3411; J3490; J7121